=== PATIENT | female | born 1975 | race Caucasian/White ===

== ENCOUNTER 2019-08-22 18:30 | Emergency (ER) | payer MEDICAID, SELFPAY ==
[2019-08-22 18:52] LABS: Basophils % 0.1 %; Eosinophils # 0.2 10^3/uL (0.0-0.8); Eosinophils % 1.7 %; Hematocrit 42.4 % (37.0-47.0); Hemoglobin 13.3 g/dL (11.5-15.3); Lymphocytes % 8.8 %; Mean Corpuscular HGB Conc 31.4 g/dL (30.0-36.0); Mean Corpuscular Hemoglobin 25.5 pg (28.0-34.0); Mean Corpuscular Volume 81.4 fL (81-99); Mean Platelet Volume 10.2 fL (7.4-10.4); Monocytes # 0.4 10^3/uL (0.2-0.9); Monocytes % 3.3 %; Neutrophils # 9.9 10^3/uL (1.8-7.7); Neutrophils % 85.8 %; Nucleated Red Blood Cells % 0 %; Platelet Count 294 10^3/cmm (130-400); Red Blood Count 5.21 10^6/uL (4.1-5.3); Red Cell Distribution Width 13.1 % (12.1-15.1); White Blood Count 11.5 10^3/uL (4.0-10.0)
[2019-08-22 18:54] VITALS: BP 145/100; PULSE 108; RESP 18; TEMP 36.6; O2SAT 98; BMI 44.6
[2019-08-22 19:09] LABS: Alanine Aminotransferase 16 U/L (0-33); Albumin Level 4.4 g/dL (3.5-5.2); Alkaline Phosphatase 108 IU/L (35-105); Aspartate Amino Transferase 13 U/L (0-32); Blood Urea Nitrogen 11 mg/dL (6-20); Calcium 9.3 mg/dL (8.5-10.5); Carbon Dioxide 25 mmol/L (22-29); Chloride 103 mmol/L (98-107); Glucose 156 mg/dL (74-109); Lipase 28 U/L (13-60); Sodium 140 mmol/L (136-145); Total Bilirubin 0.4 mg/dL (0.15-1.2); Total Protein 7.4 g/dL (6.6-8.7)
[2019-08-22 19:47] LABS: HCG Qualitative Urine. Negative (Negative)
[2019-08-22 20:04] LABS: Add Urine Culture? No; Add Urine Microscopic? YES; Bacteria Urine TRACE; Bilirubin Urine Neg (NEGATIVE); Blood Urine 2+ (Negative); Glucose Urine UA Norm (Normal); Ketones Urine Negative (Negative); Leukocyte Esterase Urine Negative (Negative); Mucus Urine 1+; Nitrate Urine Negative (Negative); Protein Urine Neg (Negative); Specific Gravity, Urine 1.025 (1.005-1.030); Urine Appearance Clear (CLEAR); Urine Color Yellow (Yellow); Urobilinogen Urine 1 mg/dL (Negative); pH Urine 5 (5-7)
--- NOTE | 2019-08-22 20:54 | CTR_ITS ---
PROCEDURE INFORMATION: Exam: CT Abdomen And Pelvis With Contrast Exam date and time: 08/22/2019 9:47 PM Age: 43 years old Clinical indication: Abdominal pain; Generalized; Prior surgery; Surgery type: Tubal, gb; Additional info: Pain/hematuria TECHNIQUE: Imaging protocol: Computed tomography of the abdomen and pelvis with intravenous contrast. Total DLP: 2052.96 mGy-cm Radiation optimization: All CT scans at this facility use at least one of these dose optimization techniques: automated exposure control; mA and/or kV adjustment per patient size (includes targeted exams where dose is matched to clinical indication); or iterative reconstruction. Contrast material: OMNI 300; Contrast volume: 95 ml; Contrast route: IV; COMPARISON: CT abdomen pelvis w con* [id number] 04/27/2017 4:08 PM FINDINGS: Mediastinum: A small hiatal hernia is present. Liver: There is a diffuse decrease in hepatic parenchymal density, consistent with fatty infiltration. Gallbladder and bile ducts: There has been a cholecystectomy. Pancreas: Normal. No ductal dilation. Spleen: Normal. No splenomegaly. Adrenals: Normal. No mass. Kidneys and ureters: There is no evidence of hydronephrosis. There is no evidence of renal calcifications. Stomach and bowel: Unremarkable. No obstruction. No mucosal thickening. Appendix: A normal appendix is identified. Intraperitoneal space: Unremarkable. No free air. No significant fluid collection. Vasculature: Unremarkable.No abdominal aortic aneurysm. Lymph nodes: Unremarkable.No enlarged lymph nodes. Bladder: Unremarkable as visualized. Reproductive: Unremarkable as visualized. Unremarkable uterus and ovaries. Bones/joints: Unremarkable. No acute fracture. Soft tissues: Unremarkable. CT/CT abdomen pelvis w con* [id number] IMPRESSION: No acute abnormality or inflammatory changes. No obstructing calculi or hydronephrosis. No ileus or obstruction. Radiation Dose CTDIVOL = (mGy): DLP = 2052.96 (mGy-cm)
--- NOTE | 2019-08-22 20:56 | ED_ITS ---
HPI - General Adult General: Chief complaint: Abdominal Pain Stated complaint: ABD/BACK PAIN/DIZZY Time Seen by Provider: 08/22/19 20:49 History of Present Illness: HPI narrative: Patient here complaining about lower pelvic pain and pain radiating out to both sides of her low back. Denies nausea and vomiting. Does feel dizzy. No history of hypertension. Symptoms been going on for the last couple days. Says she feels like she has a UTI. Denies vaginal discharge history of ovarian cyst finished menses on August 16 complaint: abd pain Onset (ago): day(s) (2) Location: abdomen Radiation: back Severity: moderate Severity scale (1-10): 7 Quality: burning and aching Pain Consistency: constant Relieving factors: none Exacerbating factors: none Associated symptoms: Reports no associated symptoms; Deny chest pain, dyspnea, headache(s), nausea, rash or vomiting Review of Systems Const: Denies: fever, chills or body aches Eyes: Denies: change in vision or blurry vision ENMT: Denies: throat pain or nasal congestion Card: Denies: chest pain or shortness of breath on exertion Resp: Denies: shortness of breath, productive cough or non-productive cough GI: Reports: abdominal pain; Denies: nausea or vomiting Musc: Denies: extremity pain Skin/Breast: Denies: rash Neuro: Denies: headache Psych: Denies: anxiety or depression Michael/Lymph: Denies: easy bruising PFSH ED PFSH: Statuses (acute, chronic, etc) shown below reflect problem list status as previously entered and may not be historically accurate Social History Smoking and tobacco status: current every day smoker Physical Exam Const: COMMON NORMALS: no apparent distress, average body habitus and oriented x3 HENMT: COMMON NORMALS: normocephalic HEAD & SCALP: normal to inspection and normocephalic FACE & SINUS: normal facial exam Eye: COMMON NORMALS: conjunctivae normal GENERAL EYE: normal appearance of both eyes CONJUNCTIVA: Yes conjunctivae normal Neck/C-Spine: COMMON NORMALS: no JVD Chest: COMMONS NORMALS: inspection of chest normal Resp: COMMON NORMALS: normal respiratory effort and clear to auscultation bilaterally AUSCULTATION: clear to auscultation bilaterally Cardio: COMMON NORMALS: no JVD, regular rate and regular rhythm RATE: regular rate RHYTHM: regular rhythm GI: COMMON NORMALS: normal to inspection, nondistended, normoactive bowel sounds and soft to palpation PALPATION: Yes soft and Yes tender Details: LLQ and RLQ PERCUSSION: normal to percussion Extremity: COMMON NORMALS: normal to inspection and full ROM Neuro: COMMON NORMALS: oriented x3 Course Vital Signs: Vital signs: Vital Signs Temperature 97.8 F 08/22/19 18:54 Pulse Rate 108 H 08/22/19 18:54 Respiratory Rate 18 08/22/19 18:54 Blood Pressure 145/100 08/22/19 18:54 Pulse Oximetry 98 08/22/19 18:54 [facility] - General Adult Lab Data: Labs: Lab Results 08/22/19 08/22/19 08/22/19 Range/Units 18:47 18:47 19:32 WBC 11.5 H (4.0-10.0) 10^3/ uL RBC 5.21 (4.1-5.3) 10^6/u L Hgb 13.3 (11.5-15.3) g/dL Hct 42.4 (37.0-47.0) % MCV 81.4 (81-99) fL MCH 25.5 L (28.0-34.0) pg MCHC 31.4 (30.0-36.0) g/dL RDW 13.1 (12.1-15.1) % Plt Count 294 (130-400) 10^3/c mm MPV 10.2 (7.4-10.4) fL Neut % (Auto) 85.8 % Lymph % (Auto) 8.8 % Letcher % (Auto) 3.3 % Eos % (Auto) 1.7 % Baso % (Auto) 0.1 % Neut # (Auto) 9.9 H (1.8-7.7) 10^3/u L Lymph # (Auto) 1.0 (0.8-4.8) 10^3/u L Letcher # (Auto) 0.4 (0.2-0.9) 10^3/u L Eos # (Auto) 0.2 (0.0-0.8) 10^3/u L Baso # (Auto) 0.0 (0.0-0.1) 10^3/u L Nucleated RBC % (a uto) 0 % Nucleated RBCs # 0.0 /100WBC Sodium 140 (136-145) mmol/L Potassium 4.0 (3.5-5.1) mmol/L Chloride 103 (98-107) mmol/L Carbon Dioxide 25 (22-29) mmol/L Anion Gap 16.0 (5-19) BUN 11 (6-20) mg/dL Creatinine 0.8 (0.5-0.9) mg/dL GFR Calculation 79.0 L (90-130) mL/min Glucose 156 H (74-109) mg/dL Calcium 9.3 (8.5-10.5) mg/dL Total Bilirubin 0.4 (0.15-1.2) mg/dL AST 13 (0-32) U/L ALT 16 (0-33) U/L Alkaline Phosphata se 108 H (35-105) IU/L Total Protein 7.4 (6.6-8.7) g/dL Albumin 4.4 (3.5-5.2) g/dL Globulin 3.0 (1.3-4.6) g/dL Lipase 28 (13-60) U/L HCG, Qual Negative (Negative) Urine Color (Yellow) Urine Appearance (CLEAR) Urine pH (5-7) Ur Specific Gravit y (1.005-1.030) Urine Protein (Negative) Urine Glucose (UA) (Normal) Urine Ketones (Negative) Urine Occult Blood (Negative) Urine Nitrate (Negative) Urine Bilirubin (NEGATIVE) Urine Urobilinogen (Negative) mg/dL Ur Leukocyte Gemma ase (Negative) Urine RBC (0-2) /hpf Urine WBC (0-5) /hpf Ur Squamous Epith Cells (0-5) Urine Bacteria (NONE) Urine Mucus 08/22/19 Range/Units 19:32 WBC (4.0-10.0) 10^3/ uL RBC (4.1-5.3) 10^6/u L Hgb (11.5-15.3) g/dL Hct (37.0-47.0) % MCV (81-99) fL MCH (28.0-34.0) pg MCHC (30.0-36.0) g/dL RDW (12.1-15.1) % Plt Count (130-400) 10^3/c mm MPV (7.4-10.4) fL Neut % (Auto) % Lymph % (Auto) % Letcher % (Auto) % Eos % (Auto) % Baso % (Auto) % Neut # (Auto) (1.8-7.7) 10^3/u L Lymph # (Auto) (0.8-4.8) 10^3/u L Letcher # (Auto) (0.2-0.9) 10^3/u L Eos # (Auto) (0.0-0.8) 10^3/u L Baso # (Auto) (0.0-0.1) 10^3/u L Nucleated RBC % (a uto) % Nucleated RBCs # /100WBC Sodium (136-145) mmol/L Potassium (3.5-5.1) mmol/L Chloride (98-107) mmol/L Carbon Dioxide (22-29) mmol/L Anion Gap (5-19) BUN (6-20) mg/dL Creatinine (0.5-0.9) mg/dL GFR Calculation (90-130) mL/min Glucose (74-109) mg/dL Calcium (8.5-10.5) mg/dL Total Bilirubin (0.15-1.2) mg/dL AST (0-32) U/L ALT (0-33) U/L Alkaline Phosphata se (35-105) IU/L Total Protein (6.6-8.7) g/dL Albumin (3.5-5.2) g/dL Globulin (1.3-4.6) g/dL Lipase (13-60) U/L HCG, Qual (Negative) Urine Color Yellow (Yellow) Urine Appearance Clear (CLEAR) Urine pH 5 (5-7) Ur Specific Gravit y 1.025 (1.005-1.030) Urine Protein Neg (Negative) Urine Glucose (UA) Norm (Normal) Urine Ketones Negative (Negative) Urine Occult Blood 2+ H (Negative) Urine Nitrate Negative (Negative) Urine Bilirubin Neg (NEGATIVE) Urine Urobilinogen 1 H (Negative) mg/dL Ur Leukocyte Gemma ase Negative (Negative) Urine RBC 5-10 H (0-2) /hpf Urine WBC None (0-5) /hpf Ur Squamous Epith Cells 5-10 H (0-5) Urine Bacteria Trace (NONE) Urine Mucus 1+ Coding Level of Care Code ED Chef Broiler Or Fry for Magali Gonzáles
[2019-08-22 21:22] VITALS: RESP 16
[2019-08-22] MEDS: morphine 4 mg/mL SDV 1 mL IVP (21:22)
[2019-08-22] MEDS: sodium chloride 0.9% 1,000 ML 999 ML IV (21:23)
[2019-08-22] MEDS: ondansetron 2 mg/ML SDV 2 mL 4 MG IVP (21:23)
[2019-08-22] MEDS: iohexol 300 mg/mL 100 mL Btl 95 ML IV (21:54)
[2019-08-22 22:27] VITALS: RESP 18
[2019-08-22] MEDS: morphine 4 mg/mL SDV 1 mL 2 MG IVP (22:27)
[2019-08-22 23:05] VITALS: BP 143/83; PULSE 90; RESP 18; O2SAT 96
== END 2019-08-22 23:06 | disposition home or self-care (01) ==
PROVIDERS: Emergency Medicine; Emergency Provider Nurse Practitioner Family; Family Provider Family Medicine
DX: R10.9 Unspecified abdominal pain (principal); M54.9 Dorsalgia, unspecified; F17.210 Nicotine dependence, cigarettes, uncomplicated
CPT/HCPCS: 36415; 74177; 80053; 81001; 81025; 83690; 85025; 96374; 99282; 99283; J2270; J2405; J7030; Q9967

== ENCOUNTER 2019-12-08 16:09 | Emergency (ER) | payer SELFPAY ==
[2019-12-08 16:22] VITALS: BP 155/95; PULSE 96; RESP 18; TEMP 36.7; O2SAT 96; BMI 44.6
--- NOTE | 2019-12-08 17:23 | ED_ITS ---
HPI - Fall General: Chief Complaint: Fall Stated Complaint: fell Time Seen by Provider: 12/08/19 17:23 History of Present Illness: HPI Narrative: Patient is a 44-year-old female who comes to the ED with left lower back and hip pain. Patient says yesterday she was at [employer] [facility] and she slipped in some water fell down to her left knee. She was in any pain at all after the fall but then during the night she started getting left hip pain and left lower back pain. She rates the pain an 8 out of 10. Denies hitting her head or any loss of consciousness. Denies any bladder or bowel symptoms. Associated symptoms-after fall: Denies abdominal pain, chest pain, headache(s), hematuria or neck pain Review of Systems Const: Denies: fever(s), chills or fatigue Eyes: Denies: change in vision or eye discomfort ENMT: Denies: throat pain, odynophagia, nasal discharge or nasal congestion Card: Denies: chest pain, palpitations, edema, swelling of feet/ankles, dyspnea on exertion or orthopnea Resp: Denies: dyspnea, productive cough or non-productive cough GI: Denies: abdominal pain, nausea, vomiting, diarrhea, constipation or hematochezia : Denies: flank pain, dysuria or hematuria Musc: Reports: back pain (left lower back) and joint pain (left hip pain); Denies: neck pain or extremity swelling Skin/Breast: Denies: rash or new lesions Neuro: Denies: headache(s), numbness in extremities or weakness in extremities [facility] ED PFSH: Social History Smoking and tobacco status: current every day smoker Physical Exam Const: COMMON NORMALS: no acute distress, patient oriented x3 and alert GENERAL APPEARANCE: cooperative and comfortable HENMT: COMMON NORMALS: normocephalic HEAD & SCALP: normocephalic MOUTH: Normal oral and palatal mucosa present THROAT: posterior oropharynx normal and uvula midline Neck/C-Spine: COMMON NORMALS: supple GENERAL: Yes normal visual inspection Resp: COMMON NORMALS: normal respiratory effort, No retractions, No use of accessory muscles and clear to auscultation bilaterally AUSCULTATION: clear to auscultation bilaterally Cardio: COMMON NORMALS: regular rate, regular rhythm, S1 normal heart sound present, S2 normal heart sound present, No gallops present (Cardio), No clicks present (Cardio), No murmurs present (Cardio) and Peripheral pulses 2+ throu ghout RATE: regular rate RHYTHM: regular rhythm HEART SOUNDS: S1 normal heart sound present and S2 normal heart sound present PERIPHERAL PULSES: Peripheral pulses 2+ throughout GI: COMMON NORMALS: Normal to inspection, nondistended, normoactive bowel sounds present, Soft to palpation, non-tender and no masses PALPATION: Yes Soft to palpation : COMMON NORMALS: Yes no CVA tenderness BLADDER/KIDNEY EXAM: Yes no CVA tenderness Back/Pelvis: COMMON NORMALS: no CVA tenderness LUMBAR SPINE/LOWER BACK: Yes paraspinal muscle tenderness Lumbar paraspinal muscle tenderness: left left lumbar paraspinal muscle tenderness: L4 and L5 Extremity: LEFT LOWER EXTREMITY: Yes hip joint Left hip: Yes inspection (No swelling or deformity seen.), Yes palpation (mild tenderness over lateral side), Yes ROM (full with some pain) and Yes neurovascular exam (intact) Neuro: COMMON NORMALS: patient oriented x3, CN's II-XII intact bilaterally, moves all extremities, no focal motor deficits and no sensory deficits noted SENSORIUM/ORIENTATION: Yes alert SENSORY EXAM: Yes extremities (intact) MOTOR EXAM: 5/5 motor strength present throughout Skin: COMMON NORMALS: no rashes or lesions noted GENERAL SKIN EXAM: no rashes or lesions noted and dry skin Course Vital Signs: Vital signs: Vital Signs Temperature 98.0 F 12/08/19 16:22 Pulse Rate 77 12/08/19 19:42 Respiratory Rate 14 12/08/19 19:42 Blood Pressure 121/88 12/08/19 19:42 Pulse Oximetry 98 12/08/19 19:42 MDM - Fall MDM Narrative: Medical decision making narrative: Patient is a 44-year-old female comes to the ED with left lower back pain and left hip pain due to a fall yesterday. Physical exam was remarkable for some left lower lumbar muscle tenderness and left lateral hip tenderness. Left hip x-ray was performed and showed no acute fractures. Patient was given a dose of IM Toradol and Norflex to help with pain. Patient was discharged with left lumbar pain. She was given a prescription for Robaxin and instructed to take it at night to help with pain and comfort during sleep. Also told her to take [id number] ibuprofen 600 mg 3 times a day. Told her to ice and to stretch lower back. Follow-up with PCP in 7 days for reevaluation. Patient understood and agreed with plan. Imaging Data^: Xray Ortho: Attestation: I personally reviewed and interpreted this imaging study as follows: My impression: Left hip x-ray performed. No acute findings. Pending final radiology report. Discharge Plan Discharge Patient Disposition: Home, Self-Care Clinical Impression: Left lumbar pain Qualifiers: Chronicity: acute Sciatica presence: without sciatica Qualified Code(s): M54.5 - Low back pain Condition: Stable Prescriptions: New Robaxin-750 750 mg tablet 750 mg PO Q8H Qty: 20 RF: 0 No Action hydrocodone-acetaminophen 5-325 mg tablet 1 tab PO Q6H PRN (Reason: pain) Qty: 7 RF: 0 Discharge Orders: Discharge Order (Routine); Ordered 12/08/19 Ordered By: Tano Hayward Referrals: Jose Yanez MD [Family Provider] - Discharge Diet: Regular Discharge Activity: Increase activity as tolerated Patient Instructions: Acute Low Back Pain (ED) Activity Restrictions/Additional Instructions: Follow-up with your PCP in 7 to 10 days for reevaluation. Take prescribed muscle relaxer at night before bed to help with pain and comfort. You can use muscle relaxer during the day but use with caution because it can cause drowsiness. Take [id number] ibuprofen up to 600 mg 3 times a day to help with pain and inflammation. Ice and stretch painful area and lower back. Stand Alone Forms: Work/School Release Discharge Date/Time: 12/08/19 19:45 Coding Level of Care Code ED Lead Neurodiagnostic Technologist for Magali Fwd Exam Comprehensive
--- NOTE | 2019-12-08 17:29 | PC.NURSE ---
Pain to Left knee going into left hip and into the lower back area. Pain on a scale of 1-10 is an 8
--- NOTE | 2019-12-08 17:51 | XRR_ITS ---
PROCEDURE INFORMATION: Exam: XR Left Hip with Pelvis when Performed Exam date and time: 12/08/2019 6:15 PM Age: 44 years old Clinical indication: Pain and injury or trauma; Fall; Initial encounter; Blunt trauma (contusions or hematomas); Hip pain; Left hip; Additional info: Fall with pain to left hip TECHNIQUE: Imaging protocol: XR Left hip with pelvis when performed. Views: 2 or 3 views. COMPARISON: CR Hip 2-3v LEFT wwo Pelv* [id number] 11/21/2016 6:03 PM FINDINGS: Bones/joints: No acute bony injury or malalignment in the left hip. Soft tissues: Skin folds. XR/XR hip LT 2-3V wo/w pel* [id number] IMPRESSION: No acute bony injury or malalignment in the left hip.
[2019-12-08] MEDS: ketorolac 30 mg/mL INJ IM (18:26)
[2019-12-08] MEDS: orphenadrine 30 mg/mL Inj 2 mL 60 MG IM (18:31)
[2019-12-08 19:35] VITALS: BP 120/86; PULSE 70; RESP 16; O2SAT 98
[2019-12-08 19:42] VITALS: BP 121/88; PULSE 77; RESP 14; O2SAT 98
== END 2019-12-08 19:45 | disposition home or self-care (01) ==
PROVIDERS: Emergency Provider Physician Assistant; Family Provider Family Medicine
DX: M54.5 Low back pain (principal); F17.210 Nicotine dependence, cigarettes, uncomplicated
CPT/HCPCS: 12345; 73502; 96372; 99281; 99283; J1885; J2360

== ENCOUNTER 2020-03-13 16:21 | Emergency (ER) | payer SELFPAY ==
[2020-03-13 16:26] VITALS: BMI 46.3
[2020-03-13 16:28] VITALS: BP 130/80; PULSE 92; RESP 16; TEMP 36.8; O2SAT 96
--- NOTE | 2020-03-13 17:26 | US_ITS ---
WS: [id number] EXAM: TRANSVAGINAL PELVIC SONOGRAM DATE OF EXAMINATION: 03/13/2020, 1804 hour COMPARISON: None. HISTORY: 44-year-old with a history of prior tubal ligation. Complaining of left lower quadrant pain with blee ding off and on since February 28. FINDINGS: Uterus is estimated at 6.2 x 4.7 x 6.0 cm in size. Endometrial complex 1.01 cm in thickness. Left ovary is estimated at 3.1 x 2.6 x 2.4 cm in size. Color flow and spectral Doppler demonstrates v enous and arterial flow within the left ovary. Arterial velocity 13.7 cm/s. Most prominent follicular cyst on the left 2.5 cm in size. No free fluid in the cul-de-sac. Right ovary is not identified. US/US transvaginal [id number] IMPRESSION: Thickened endometrial stripe at 1 cm. Most likely represent some degree of endometrial hyperplasia. Normal appearance to the left ovary with a normal-appearing follicular cyst est imated at 2.5 cm in size. Normal flow within the left ovary demonstrated. Right ovary not seen. No free fluid.
--- NOTE | 2020-03-13 17:26 | W.ED.FEMALGU ---
HPI - Female Genitourinary General: Chief complaint: Urogenital-Female Stated complaint: pelvic pain/vaginal bleeding Time Seen by Provider: 03/13/20 17:22 Source: patient Mode of arrival: ambulatory Limitations: no limitations History of Present Illness: HPI Narrative: 44-year-old female comes in today with complaints of bleeding every other day since her last period on 28 February. Patient had her tubes tied about 20 years ago. Patient appears well. Patient appears in mild discomfort. MD elicited complaint: vaginal bleeding Date of Last Menstrual Period: 02/28/20 Review of Systems General: Reports: 10 or more systems reviewed and unremarkable except in HPI and below : Reports: vaginal bleeding PFSH ED PFSH: Social History Smoking and tobacco status: current every day smoker Female Reproductive History: Date of last menstrual period: 02/28/20 Physical Exam Const: COMMON NORMALS: no acute distress and patient oriented x3 GENERAL APPEARANCE: cooperative HENMT: COMMON NORMALS: normocephalic and Normal external nose present HEAD & SCALP: normal to inspection and normocephalic NOSE: Normal external nose present MOUTH: Normal oral and palatal mucosa present THROAT: posterior oropharynx normal Eye: GENERAL EYE: appearance normal, both eyes and all related structures Neck/C-Spine: COMMON NORMALS: full ROM Chest: COMMONS NORMALS: normal inspection of the chest Resp: COMMON NORMALS: normal respiratory effort EFFORT & INSPECTION: Yes able to speak in complete sentences Cardio: COMMON NORMALS: regular rate and regular rhythm RATE: regular rate RHYTHM: regular rhythm GI: COMMON NORMALS: non-tender : COMMON NORMALS: Yes no CVA tenderness BLADDER/KIDNEY EXAM: Yes no CVA tenderness Back/Pelvis: COMMON NORMALS: no CVA tenderness and thoracic and lumbar spine normal to inspection Extremity: COMMON NORMALS: normal to inspection Neuro: COMMON NORMALS: patient oriented x3 and moves all extremities Psych: COMMON NORMALS: mental status grossly normal and cooperative Skin: COMMON NORMALS: no rashes or lesions noted GENERAL SKIN EXAM: no rashes or lesions noted Course Vital Signs: Vital signs: Vital Signs Temperature 98.3 F 03/13/20 16:28 Pulse Rate 84 03/13/20 18:57 Respiratory Rate 18 03/13/20 18:57 Blood Pressure 136/74 08/19/20 18:57 Pulse Oximetry 98 03/13/20 18:57 MDM - Female MDM Narrative: Medical decision making narrative: Patient comes in today with complaints of abnormal vaginal bleeding. Patient reports irregular bleeding since her last period on 28 February. Patient reports he will go without bleeding for 2 days and then have a reoccurrence. Patient appears well. Patient does complain of some increased cramping with the bleeding. Differential diagnosis includes but not limited to menorrhagia, endometrial hyperplasia, 3 menstrual syndrome. Laboratory values were nonspecific. hCG was negative. Ultrasound of the pelvis noted a cyst on the left ovary and some mild endometrial hyperplasia. Patient was given Toradol for pain. With recommendations for following up with THEATER EDUCATION TEACHER. Patient was placed on naproxen twice a day routinely for prostaglandin intubation and pain control. She was recommended to return to the ER for worsening symptoms or high fever. Patient reported understanding. Lab Data: Labs: Lab Results 03/13/20 03/13/20 03/13/20 Range/Units 17:50 17:50 17:50 WBC 8.7 (4.0-10.0) 10^3/ uL RBC 4.58 (4.1-5.3) 10^6/u L Hgb 12.1 (11.5-15.3) g/dL Hct 38.1 (37.0-47.0) % MCV 83.2 (81-99) fL MCH 26.4 L (28.0-34.0) pg MCHC 31.8 (30.0-36.0) g/dL RDW 13.7 (12.1-15.1) % Plt Count 283 (130-400) 10^3/c mm MPV 10.4 (7.4-10.4) fL Neut % (Auto) 65.2 % Lymph % (Auto) 26.2 % Madison % (Auto) 5.5 % Eos % (Auto) 2.5 % Baso % (Auto) 0.3 % Neut # (Auto) 5.67 (1.8-7.7) 10^3/u L Lymph # (Auto) 2.3 (0.8-4.8) 10^3/u L Madison # (Auto) 0.5 (0.2-0.9) 10^3/u L Eos # (Auto) 0.2 (0.0-0.8) 10^3/u L Baso # (Auto) 0.0 (0.0-0.1) 10^3/u L Nucleated RBC % (a uto) 0 % Nucleated RBCs # 0.0 /100WBC Sodium 140 (136-145) mmol/L Potassium 4.1 (3.5-5.1) mmol/L Chloride 105 (98-107) mmol/L Carbon Dioxide 26 (22-29) mmol/L Anion Gap 13.1 (5-19) BUN 11 (6-20) mg/dL Creatinine 0.7 (0.5-0.9) mg/dL GFR Calculation 91.8 (90-130) mL/min Glucose 119 H (65-115) mg/dL Calculated Osmolal ity 287 (285-295) mOsm/k g Calcium 9.2 (8.5-10.5) mg/dL Total Bilirubin 0.2 (0.15-1.2) mg/dL AST 14 (0-32) U/L ALT 16 (0-33) U/L Alkaline Phosphata se 87 (35-105) IU/L Total Protein 6.7 (6.6-8.7) g/dL Albumin 3.9 (3.5-5.2) g/dL Globulin 2.8 (1.3-4.6) g/dL HCG, Qual Negative (Negative) Discharge Plan Discharge Patient Disposition: Home Clinical Impression: Endometrial hyperplasia Menorrhagia Qualifiers: Menorrhagia type: premenopausal Qualified Code(s): N92.4 - Excessive bleeding in the premenopausal period Condition: Stable Prescriptions: New naproxen 500 mg tablet 500 mg PO BID Qty: 20 RF: 0 No Action hydrocodone-acetaminophen 5-325 mg tablet 1 tab PO Q6H PRN (Reason: pain) Qty: 7 RF: 0 Robaxin-750 750 mg tablet 750 mg PO Q8H Qty: 20 RF: 0 Discharge Orders: Discharge Order (Routine); Ordered 03/13/20 Ordered By: Maurice Burk Discharge Diet: Usual diet Discharge Activity: Increase activity as tolerated Patient Instructions: Menorrhagia (ED) Activity Restrictions/Additional Instructions: Drink plenty of fluids with medication. Take naproxen twice a day to help control bleeding and cramping. Follow-up with THEATER EDUCATION TEACHER for further treatment and evaluation. Return to the emergency department for worsening bleeding, or high fever. Case management will contact you in the next couple of days to help with follow-up appointment with THEATER EDUCATION TEACHER. If you do not hear from case management within 2 days please contact the emergency room charge nurse. Discharge Date/Time: 03/13/20 18:58 Coding Level of Care Code ED Area Captain for Magali Fwd Exam Comprehensive
[2020-03-13 17:56] LABS: Basophils % 0.3 %; Eosinophils # 0.2 10^3/uL (0.0-0.8); Eosinophils % 2.5 %; Hematocrit 38.1 % (37.0-47.0); Hemoglobin 12.1 g/dL (11.5-15.3); Lymphocytes # 2.3 10^3/uL (0.8-4.8); Lymphocytes % 26.2 %; Mean Corpuscular HGB Conc 31.8 g/dL (30.0-36.0); Mean Corpuscular Hemoglobin 26.4 pg (28.0-34.0); Mean Corpuscular Volume 83.2 fL (81-99); Mean Platelet Volume 10.4 fL (7.4-10.4); Monocytes # 0.5 10^3/uL (0.2-0.9); Monocytes % 5.5 %; Neutrophils # 5.67 10^3/uL (1.8-7.7); Neutrophils % 65.2 %; Nucleated Red Blood Cells % 0 %; Platelet Count 283 10^3/cmm (130-400); Red Blood Count 4.58 10^6/uL (4.1-5.3); Red Cell Distribution Width 13.7 % (12.1-15.1); White Blood Count 8.7 10^3/uL (4.0-10.0)
[2020-03-13 18:12] LABS: HCG, Serum Qual Negative (Negative)
[2020-03-13 18:14] LABS: Alanine Aminotransferase 16 U/L (0-33); Albumin Level 3.9 g/dL (3.5-5.2); Alkaline Phosphatase 87 IU/L (35-105); Anion Gap 13.1 (5-19); Aspartate Amino Transferase 14 U/L (0-32); Blood Urea Nitrogen 11 mg/dL (6-20); Calcium 9.2 mg/dL (8.5-10.5); Carbon Dioxide 26 mmol/L (22-29); Chloride 105 mmol/L (98-107); Globulin 2.8 g/dL (1.3-4.6); Glomerular Filtration Rate 91.8 mL/min (90-130); Glucose 119 mg/dL (65-115); Osmolality Calculated 287 mOsm/kg (285-295); Potassium 4.1 mmol/L (3.5-5.1); Sodium 140 mmol/L (136-145); Total Bilirubin 0.2 mg/dL (0.15-1.2); Total Protein 6.7 g/dL (6.6-8.7)
[2020-03-13 18:57] VITALS: BP 136/74; PULSE 84; RESP 18; O2SAT 98
[2020-03-13 19:08] LABS: Urine Appearance Cloudy (CLEAR); Urine Color Red (Yellow)
[2020-03-13 19:09] LABS: Add Urine Microscopic? YES; Bilirubin Urine Neg (NEGATIVE); Blood Urine 3+ (Negative); Glucose Urine UA Norm (Normal); Ketones Urine Negative (Negative); Leukocyte Esterase Urine Negative (Negative); Nitrate Urine Negative (Negative); Protein Urine 1+ (Negative); Specific Gravity, Urine 1.025 (1.005-1.030); Urobilinogen Urine Norm (Negative); pH Urine 5 (5-7)
[2020-03-13 19:10] LABS: Add Urine Culture? Yes; Bacteria Urine 3+; RBC Urine TOO NUMEROUS TO CNT /hpf (0-2); Squamous Epithelial Cell Urine 0-4 (0-5); WBC Urine 0-4 /hpf (0-5)
--- NOTE | 2020-03-14 09:28 | DCPLANNER ---
acting manager had message to schedule a follow up appointment for patient with [facility]. acting manager called the [facility], spoke with Patricia, gave clinic patients information. acting manager was told that patients information would be printed and reviewed. Clinic will call patient with appointment information.
--- NOTE | 2020-03-15 13:15 | DCPLANNER ---
Patient has a follow up appointment scheduled for Wednesday, March 29, 2020 at 10:[address] Ibrahim. Clinic will call patient with appointment information.
--- NOTE | 2020-04-04 07:51 | DCPLANNER ---
Patient had a follow up appointment scheduled with [facility] - patient did attend appointment.
== END 2020-03-13 18:58 | disposition home or self-care (01) ==
PROVIDERS: Emergency Provider Nurse Practitioner Family
DX: N93.9 Abnormal uterine and vaginal bleeding, unspecified (principal); N92.4 Excessive bleeding in the premenopausal period; N85.00 Endometrial hyperplasia, unspecified; F17.210 Nicotine dependence, cigarettes, uncomplicated
CPT/HCPCS: 12345; 36415; 76830; 80053; 81001; 84703; 85025; 87086; 99281; 99282; 99283

== ENCOUNTER → 2020-03-25 09:45 | Outpatient (BNVA) | payer SELFPAY | PROVIDERS: Visit Provider Obstetrics & Gynecology | DX: N93.9 Abnormal uterine and vaginal bleeding, unspecified (principal); R10.2 Pelvic and perineal pain | CPT/HCPCS: 83001; 84146; 84443; 85025 ==

== ENCOUNTER → 2020-09-26 13:30 | Outpatient (BNVA) | payer SELFPAY | PROVIDERS: Visit Provider Obstetrics & Gynecology | DX: N93.9 Abnormal uterine and vaginal bleeding, unspecified (principal); Z12.4 Encounter for screening for malignant neoplasm of cervix; Z20.822 Contact with and (suspected) exposure to COVID-19 | CPT/HCPCS: 87635; 88175; 88305 ==

== ENCOUNTER 2020-10-02 08:56 | Observation (INO) | payer SELFPAY ==
[2020-09-30 10:14] VITALS: BMI 49.2
--- NOTE | 2020-09-30 10:47 | ANES.PREANE2 ---
Pre-Anesthetic Assessment Pre-Anesthetic Assessment: Height/Weight: Height 1.63 m Weight 130.181 kg Proposed Procedure: Operation Date: 10/02/20 07:00 Proposed Procedures p Total Vaginal Hysterectomy 95444 n93.9 r10.2(Not Applicable) - Merlin Ibrahim MD Was Beta Viola taken within 24 hours: N/A Social: Social History: Tobacco and No alcohol Exam: Pre-Anes Outpt Exam: alert, oriented x 3 and regular rate & rhythm Airway: Submandibular: WNL Cervical ROM: WNL MP: 2 Dentition: Loose (bottom arch central incisors looseX2) Pulmonary: Pulmonary: COPD CV/HEM: CV/HEM: Anemia Metabolic: Metabolic: Morbid obesity Anesthetic Plan: ASA status: 3 Anesthesia: General Risk of > 500 ml blood loss (7ml/kg in children): No PFSH Anesthesia PFSH: Medical History Abnormal uterine bleeding (AUB) Pelvic pain Surgical History H/O tubal ligation 1998 S/P cholecystectomy 2003 Family History Grandmother Breast cancer maternal Uterine cancer maternal Mother Uterine cancer, Onset Age: 45 Stroke Sister Ovarian cancer, Onset Age: 22 Father Anesthesia complication Diabetes Hypertension Other Clotting disorder Denies family history of Hyperlipidemia Bleeding disorder Social History (Updated 09/30/20 @ 08:34 by Marion Mccurdy RN) Smoking and tobacco status: former smoker Quit status (tobacco): has quit using tobacco Year quit tobacco: 2019 Alcohol intake: current Alcohol intake frequency: holidays/special occasions only Alcohol type: wine Substance/Drug Use: never Female Reproductive History: Date of last menstrual period: 02/28/20 Data Anesthesia Cardiac Studies: No Data to Display
[2020-10-02] VITALS (22 sets, daily range): BP systolic 111–173; BP diastolic 66–96; PULSE 71–97; RESP 16–22; TEMP 36.1–36.8; O2SAT 93–100
[2020-10-02 06:16] LABS: OR HCG Qualitative Urine Negative (Negative)
[2020-10-02] MEDS: scopolamine 1.5 Patch 1 PATCH TRANSDERMA (06:45)
[2020-10-02] MEDS: lactated ringers 500 ML IV (06:45)
[2020-10-02 06:46] LABS: Basophils % 0.2 %; Eosinophils # 0.2 10^3/uL (0.0-0.8); Eosinophils % 2.3 %; Hematocrit 35.5 % (37.0-47.0); Hemoglobin 11.1 g/dL (11.5-15.3); Lymphocytes % 23.8 %; Mean Corpuscular HGB Conc 31.3 g/dL (30.0-36.0); Mean Corpuscular Hemoglobin 25.6 pg (28.0-34.0); Mean Corpuscular Volume 81.8 fL (81-99); Mean Platelet Volume 10.6 fL (7.4-10.4); Monocytes # 0.6 10^3/uL (0.2-0.9); Monocytes % 6.7 %; Neutrophils # 5.71 10^3/uL (1.8-7.7); Neutrophils % 66.8 %; Nucleated Red Blood Cells % 0 %; Platelet Count 278 10^3/cmm (130-400); Red Blood Count 4.34 10^6/uL (4.1-5.3); Red Cell Distribution Width 17.6 % (12.1-15.1); White Blood Count 8.6 10^3/uL (4.0-10.0)
--- NOTE | 2020-10-02 06:47 | P.ANESUD_ITS ---
Pre-Anesthetic Update Pre-Anesthetic Assessment: Date of Surgery/Procedure: 10/02/20 Preop Tiera gnosis: Abnormal uterine bleeding, chronic pelvic pain, endometrial Proposed Procedure: Operation Date: 10/02/20 07:00 Proposed Procedures p Total Vaginal Hysterectomy 33140 n93.9 r10.2(Not Applicable) - Merlin Ibrahim MD Any changes to Pre-Anesthetic Assessment?: No Last Intake: Intake Last Liquid Date 10/01/20 Last Liquid Time 23:50 Last Solid Date 10/01/20 Last Solid Time 20:30 Labs Last 48hrs: Laboratory Results - last 48 hr 10/02/20 10/02/20 06:05 06:25 WBC 8.6 RBC 4.34 Hgb 11.1 L Hct 35.5 L MCV 81.8 MCH 25.6 L MCHC 31.3 RDW 17.6 H Plt Count 278 MPV 10.6 H Neut % (Auto) 66.8 Lymph % (Auto) 23.8 [place] % (Auto) 6.7 Eos % (Auto) 2.3 Baso % (Auto) 0.2 Neut # (Auto) 5.71 Lymph # (Auto) 2.0 [place] # (Auto) 0.6 Eos # (Auto) 0.2 Baso # (Auto) 0.0 Nucleated RBC % (a uto) 0 Nucleated RBCs # 0.0 Urine HCG, Qual Negative Vitals: Temperature 97 F L 10/02/20 06:42 Temperature Source Temporal Artery S can 10/02/20 06:42 Pulse Rate 85 10/02/20 06:42 Respiratory Rate 18 10/02/20 06:42 Blood Pressure 132/80 10/02/20 06:42 Blood Pressure Shakira n 97 10/02/20 06:42 Pulse Oximetry 97 10/02/20 06:42 Oxygen Delivery Me thod 10/02/20 06:42 Exam: Pre-Anes Outpt Exam: alert, oriented x 3, clear to auscultation bilaterally and regular rate & rhythm Cardiac Studies: No Data to Display
--- NOTE | 2020-10-02 06:49 | W.PM.OPSUD ---
Surgery/Procedure H&P Update DATE OF PROCEDURE: October 02, 2020 DATE H&P PERFORMED: 09/30/20 H&P UPDATE INFORMATION: I have reviewed H&P completed within last 30 days, I have examined patient prior to procedure and No changes to prior documentation PREOP DIAGNOSIS: Abnormal uterine bleeding, chronic pelvic pain, endometrial PLANNED PROCEDURE: Operation Date: 10/02/20 07:00 Proposed Procedures p Total Vaginal Hysterectomy 32747 n93.9 r10.2(Not Applicable) - Merlin Ibrahim MD
[2020-10-02 06:55] LABS: Urine Appearance Clear (CLEAR); Urine Color Yellow (Yellow)
[2020-10-02 06:56] LABS: Add Urine Culture? No; Add Urine Microscopic? YES; Bacteria Urine TRACE /hpf; Bilirubin Urine Neg (Negative); Blood Urine 3+ (Negative); Glucose Urine UA Norm (Normal); Ketones Urine Negative (Negative); Leukocyte Esterase Urine Negative (Negative); Mucus Urine TRACE /hpf; Nitrate Urine Negative (Negative); Protein Urine Neg (Negative); Specific Gravity, Urine 1.025 (1.005-1.030); Urobilinogen Urine 4 mg/dL (Negative); WBC Urine 0-4 /hpf (0-5); pH Urine 5 (5-7)
[2020-10-02 06:58] LABS: Alanine Aminotransferase 10 U/L (0-33); Albumin Level 3.5 g/dL (3.5-5.2); Alkaline Phosphatase 75 IU/L (35-105); Anion Gap 14.3 (5-19); Aspartate Amino Transferase 15 U/L (0-32); Blood Urea Nitrogen 8 mg/dL (6-20); Calcium 8.7 mg/dL (8.5-10.5); Carbon Dioxide 22 mmol/L (22-29); Chloride 105 mmol/L (98-107); Globulin 3.1 g/dL (1.3-4.6); Glomerular Filtration Rate 91.8 mL/min (90-130); Glucose 110 mg/dL (65-115); Osmolality Calculated 283 mOsm/kg (285-295); Potassium 4.3 mmol/L (3.5-5.1); Sodium 137 mmol/L (136-145); Total Bilirubin 0.2 mg/dL (0.15-1.2); Total Protein 6.6 g/dL (6.6-8.7)
[2020-10-02] MEDS: ceFOXitin 2,000 MG in sodium chloride 0.9% (plus) 50 ML 100 MG IV (06:58)
--- NOTE | 2020-10-02 08:49 | P.OP_ITS ---
Operative Report Date of procedure: October 02, 2020 Pre-op Diagnosis: Abnormal uterine bleeding, chronic pelvic pain, endometrial Post-op diagnosis: same Procedure Done: Total vaginal hysterectomy Specimens removed/disposition: Uterus Surgeon: Merlin Ibrahim MD Anesthesia: General Estimated blood loss (mL): 100 IV fluids (mL): 1,000 Complications: None Findings: Irregular uterus Condition: stable Disposition: PACU Brief History: 44-year-old female with a history of abnormal uterine bleeding and chronic pelvic pain unresponsive to medical management. Procedure: After informed consent and risks, benefits, indications and alter natives reviewed with the patient was taken to the operating room. The patient was placed in dorsal lithotomy position prepped, and draped in the usual sterile fashion. The pre-procedure timeout verifying the correct patient, procedure, site and side, could not requirements was performed and acknowledge by the OR team. A Tee catheter was placed. A Bookwalter vaginal retractor was placed into the vagina in usual manner visualize the cervix. Cervix was grasped with a single tooth tenaculum and circumferentially infiltrated with 1% Xylocaine with epinephrine. Then cervix was circumferentially incised with bovie and the bladder was dissected off the pubovesical cervical fascia anteriorly with a sponge stick and Metzenbaum scissors. The anterior peritoneal reflection was identified and the anterior cul-de-sac was entered sharply with Metzenbaum scissors. The same procedure was performed posteriorly and a posterior colpotomy was made through the posterior cul-de-sac space without difficulty and the posterior blade of the Bookwalter vaginal retractor was advanced posteriorly into the cul-de-sac. At this time, the left and right uterosacral ligaments were isolated and ligated with 0 Vicryl. The Enseal device was placed over the uterosacral ligaments on either side and was then used in a serial fashion up through the cardinal ligaments bilaterally cross-clamped, cut, and sealed with the Enseal device. Finally, the uterine arteries were cross-clamped, cut, sealed and ligated with the Enseal device. Hemostasis was assured. The broad ligaments were then serially clamped, sealed and cut with the Enseal device on both sides. Excellent hemostasis was visualized. Both cornua were clamped, sealed and cut with the Enseal device. Then the pedicles were then suture ligated with excellent hemostasis. The uterus was excised and submitted for pathologic evaluation. No other abnormalities were noted in the pelvic cavity. The peritoneum was then closed in a pursestring fashion with 0 Vicryl suture. The vaginal cuff angles were closed with [id number] #0 Vicryl suture on both sides and transfixed with the ipsilateral cardinal and uterosacral ligaments. The remainder of the vaginal cuff was closed with #0 Vicryl in a running locked fashion. At this time, instruments were removed from the vagina at hemostasis assured. Tee catheter started to yield blue clear greenish urine. She then awakened from the general anesthesia. The patient tolerated the procedure well and was taken to the PACU recovery room in a stable condition. Sponge, lap, needle and instruments counts were correct x3.
[2020-10-02] MEDS: fentaNYL 50 mcg/mL INJ 2mL IVP ×2 (09:05→09:10)
[2020-10-02] MEDS: HYDROmorphone 1 mg/mL INJ 1 mL 0.5 MG IVP ×2 (09:16→09:28)
[2020-10-02] MEDS: sodium chloride 0.9% 1,000 ML 30 ML IV (09:23)
--- NOTE | 2020-10-02 09:43 | SUR.PHASEI ---
PT RESTING QUIETLY NOW, SNORING RESP, EVEN AND UNLABORED ON 3LNC SATS 97%, ABD IS LARGE SOFT , UNABLE TO VISUALIZE LAILA PAD NO BLEEDING NOTED. BILAT SCDS ON , IV TO LT AC AREA D/I PATENT , ATTEMPTED TO CALL REPORT , WAITING FOR NURSE TO TAKE REPORT.
--- NOTE | 2020-10-02 09:59 | SUR.PHASEI ---
STILL WAITING TO GIVE REPORT TO NURSE, PT SLEEPS IF NOT DISTURBED , S/O LISTED CALLED AND UPDATED THAT PT IS DOING WELL AND WILL GO TO HER ROOM IN APPROX 115 MINUTES.
[2020-10-02] MEDS: docusate sodium 100 mg Capsule PO ×2 (10:28→17:24)
[2020-10-02] MEDS: ketorolac 30 mg/mL INJ IVP ×3 (10:30→22:32)
[2020-10-02] MEDS: dextrose 5%-lactated ringers 1,000 ML 125 ML IV ×2 (10:31→22:32)
[2020-10-02] MEDS: HYDROcodone-acetaminophen 5-325 mg Tablet PO ×2 (10:34→22:39)
[2020-10-02] MEDS: ondansetron 2 mg/ML SDV 2 mL 4 MG IVP (10:37)
[2020-10-02] MEDS: prenatal vitamin Capsule 1 CAP PO (11:06)
--- NOTE | 2020-10-02 14:55 | ANE.PACU2 ---
Inpatient post-anesthesia follow up: Airway intact: Yes Vital signs: Temperature 97.6 F Pulse Rate 81 Respiratory Rate 17 Blood Pressure 133/82 Pulse Oximetry 98 Oxygen Delivery Me thod Room Air Oxygen Flow Rate 3 Fraction of Inspir ed Oxygen Hydration adequate: Yes Nausea and vomiting: No Pain level: 2 Mental status: Baseline
[2020-10-03 00:38] VITALS: BP 128/76; PULSE 89; RESP 17; TEMP 36.8; O2SAT 98
[2020-10-03] MEDS: dextrose 5%-lactated ringers 1,000 ML 125 ML IV (03:43)
[2020-10-03] MEDS: ketorolac 30 mg/mL INJ IVP (03:43)
[2020-10-03 04:26] VITALS: BP 123/85; PULSE 69; RESP 17; TEMP 36.7; O2SAT 98
[2020-10-03 05:31] LABS: Hematocrit 30.8 % (37.0-47.0); Hemoglobin 9.3 g/dL (11.5-15.3); Mean Corpuscular HGB Conc 30.2 g/dL (30.0-36.0); Mean Corpuscular Hemoglobin 25.4 pg (28.0-34.0); Mean Corpuscular Volume 84.2 fL (81-99); Mean Platelet Volume 10.6 fL (7.4-10.4); Platelet Count 215 10^3/cmm (130-400); Red Blood Count 3.66 10^6/uL (4.1-5.3); Red Cell Distribution Width 17.8 % (12.1-15.1); White Blood Count 10.6 10^3/uL (4.0-10.0)
[2020-10-03 07:15] VITALS: BP 126/82; PULSE 79; RESP 16; TEMP 36.7; O2SAT 98
[2020-10-03] MEDS: HYDROcodone-acetaminophen 5-325 mg Tablet PO (07:15)
[2020-10-03] MEDS: ibuprofen 800 mg tablet PO (09:22)
[2020-10-03] MEDS: docusate sodium 100 mg Capsule PO (09:22)
[2020-10-03] MEDS: prenatal vitamin Capsule 1 CAP PO (09:22)
--- NOTE | 2020-10-03 10:40 | P.DS_ITS ---
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 Lofton is a 44 y/o (twins) with a history of abnormal uterine bleeding and chronic pelvic pain unresponsive to medical management. Admitted for planned laparoscopic-assisted vaginal hysterectomy. The procedure was performed without complications. Overnight observation has been uneventful. She is tolerating diet well and ambulating without difficulty. Voiding output has been adequate. She is afebrile and hemodynamically stable. Physical Exam Narrative: EXAM NARRATIVE: GA: Alert and oriented ?3. HEENT: WNL. Heart: Regular rate and rhythm. Lungs: Clear to auscultation bilaterally. Abdomen: Bowel sounds present, nontender, minimal tenderness, incision clean and dry, no redness, pain or edema. 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 Extremities: No edema, no cyanosis, no calves pain. Urinary Catheter Management^: Tee: Cath Placed During This Visit: yes Urinary Catheter Date of Insertion: 10/02/20 Urinary Catheter Time of Insertion: 07:24 Discharge Data Data Completed and Pending: Pending at discharge Category Date Time Status Pathology: Surgic al [PTH] Routine Pth 10/02/20 08:36 Received Labs from last 24 hours 10/03/20 04:45 WBC 10.6 H RBC 3.66 L Hgb 9.3 L Hct 30.8 L MCV 84.2 MCH 25.4 L MCHC 30.2 RDW 17.8 H Plt Count 215 MPV 10.6 H Vitals: Last Vital Signs Temp 98.0 F 10/03/20 07:15 Pulse 79 10/03/20 07:15 Resp 16 10/03/20 07:15 BP 126/82 10/03/20 07:15 Pulse Ox 98 10/03/20 07:15 Discharge Plan Discharge Patient Disposition: Home Condition: Stable Prescriptions: [place] 5-325 mg tablet 1 tab PO Q4H PRN (Reason: pain) Qty: 30 RF: 0 docusate sodium [Colace] 100 mg capsule 100 mg PO BID Qty: 30 RF: 0 ferrous sulfate 325 mg (65 mg iron) tablet 325 mg PO BID Qty: 60 RF: 0 ibuprofen 800 mg tablet 800 mg PO TID PRN (Reason: pain) Qty: 60 RF: 0 Continued Midol 500-25 mg tablet 1 tab PO Q6H PRN (Reason: Adequate Ventilation) RF: 0 multivit no.50-iron comp-folic 1 tab PO DAILY RF: 0 Discontinued norgestimate-ethinyl estradiol [Sprintec (28)] 0.25-35 mg-mcg tablet 1 tab PO DAILY Qty: 84 RF: 3 Discharge Orders: Discharge Order (Routine); Ordered 10/03/20 Ordered By: Merlin Ibrahim Referrals: Merlin Ibrahim MD [Physician] - 2 weeks Discharge Diet: Usual diet Discharge Activity: Increase activity as tolerated Patient Instructions: Laparoscopically Assisted Vaginal Hysterectomy (DC) Activity Restrictions/Additional Instructions: 1. Please call [facility] on next working day to make your post-operative appointment in 2 weeks. 2. Please stay home until you come back to the clinic on first post-operative check up. 3. Please follow instructions on your medications CAREFULLY. 4. If you have abdominal incision, do not cover it unless dressing is necessary because of drainage. OK to shower, but avoid bath. Leave steri-strips until they fall off. If they are still on one week after surgery, you may remove them. 5. If you had vaginal surgery, your doctor may instruct you to take SITZ bath. 6. Yellow, blood tinged odorous vaginal discharge is usually normal after hysterectomy or vaginal surgeries. 7. No sexual intercourse, tampons, or douches until you are completely released from the post-operative care. 8. Avoid constipation by eating right and maybe using some Metamucil or Milk of Magnesia. 9. All prescription refills are given during the working hours. Please do no wait till it runs out. Call the clinic at [phone] before your medication runs out. The clinic will get in touch with your doctor to prescribe medications if necessary. 10. Please remain within 40 mile radius from our hospital because emergencies do happen now and then during the post-operative period. 11. If you have stairs at home, take one step at a time slowly and minimize the number of trips. It helps to stay in one floor for the next few days. No lifting except what you can lift by one hand until you are released from the post-operative care. 12. Driving is discouraged until you are well healed. It may be 3-4 weeks before you feel strong enough to drive. You should be able to turn and look through the rear window without pain and you should be able to push the brake pedal very hard without pain before you drive. No fast rules, but SAFETY should be your primary concern. DO NOT drive if you are on sedating medications such as narcotics. 13. Call the clinic (during working hours) to make urgent appointment or go to the Emergency room, if any of the following occurs: i. Vaginal bleeding becomes heavy, more than a period. ii. Incision becomes red and sore, or drains pus. iii. Your temperature is over 100.4 or you have chill. iv. IV site becomes red and swollen (a little ``knot?? is usually OK) v. Persistent nausea and vomiting vi. Persistent constipation or diarrhea vii. Rash or allergic reaction to medications. Discharge Attestations DITCHING MACHINE OPERATING ENGINEER Time Spent in Discharge Care*: greater than 30 min Coding Level of Care Code Acute Conceptor for Chg Fwd Diagnoses Pelvic pain R10.2 Abnormal uterine bleeding (AUB) N93.9
--- NOTE | 2020-10-03 10:49 | PC.CHAP ---
Pastoral Care Encounter/Spiritual Assessment Type of Contact [] Declined dairy farm worker visit [] Patient/Family/Request visit [] Outpatient visit [] Follow-up visit [] Physician referral [] Code/Alert [x] Routine visit [] Staff referral [] Actively dying [] Patient sleeping [] Family support [] [] Out of room [] Palliative care [] [x] Receiving care in room [] Pre-surgical visit [] Trauma [] Long length of stay [] ICU visit [] Other: Relational/Emotional Strength [x] Patient feels connected with others/family/visitors/staff [] Distress [] Loneliness/isolation [] Abandonment Spirituality of Patient [] Person of Ammy [] Attends Mormon of their Ammy [] Believes in Prayer [] Reads Bible or Jehovah'S Witness materials [] There are Spiritual issues to be addressed Medical Technologist Prn Interventions [] Prayer [] Active listening [] Non-anxious presence [] Spiritual/emotional support [] Crisis/trauma care [] Spiritual counseling [] Bereavement support [] Provided bereavement packet [] Provided Bible/devotional materials [] Provided toy/stuffed animal, coloring book to patient or family member [] Provided Communion [] Anointing/[place] [] Salvation [] Completed spiritual assessment [] Other: Impact on Illness or Injury [] Angry [] Fearful [x] Anxious [] Often cries [] Exhaustion [] Unable to work [] Unable to attend sikh [] Unable to walk/stand [] Unable to read [] Unable to drive [] Unable to eat/drink [] Unable to sleep [] Unable to be with family [] Patient intubated [] Other: Summary had a hysterectomy surgery some pain, feels good going home, has good attitude Time spent with patient 10 mins
[2020-10-03 11:17] VITALS: BP 145/72; PULSE 68; RESP 17; TEMP 36.3; O2SAT 93
[2020-10-03 14:33] VITALS: BP 145/72; PULSE 68; RESP 17; TEMP 36.3; O2SAT 93
== END 2020-10-03 13:30 | disposition home or self-care (01) ==
LOC: MEDSURG 08:56
PROVIDERS: Admitting Provider Obstetrics & Gynecology; Visit Provider Obstetrics & Gynecology
PROC: (CPT 58260; principal; 2020-10-02 07:00)
DX: N93.9 Abnormal uterine and vaginal bleeding, unspecified (principal); R10.2 Pelvic and perineal pain; J44.9 Chronic obstructive pulmonary disease, unspecified; E66.01 Morbid (severe) obesity due to excess calories; Z68.42 Body mass index [BMI] 45.0-49.9, adult; Z87.891 Personal history of nicotine dependence
CPT/HCPCS: 58260; 36415; 80053; 81001; 81025; 84703; 85025; 85027; 86850; 86900; 88307; 96365; G0378; J0694; J1170; J1885; J2250; J2405; J2704; J2710; J3010; J3490; J3535; J7030

== ENCOUNTER 2021-01-02 09:11 | Emergency (ER) | payer SELFPAY ==
[2021-01-02 09:27] VITALS: BP 146/96; PULSE 92; RESP 20; TEMP 36.7; O2SAT 95; BMI 47.9
--- NOTE | 2021-01-02 09:37 | ED_ITS ---
HPI - General Adult General: Chief complaint: General Medical Stated complaint: LLE Pain and swelling Time Seen by Provider: 01/02/21 09:27 History of Present Illness: HPI narrative: Patient is a 45-year-old female comes to the ED with left lower extremity pain and swelling. Patient says she started developing pain in her left thigh approximately 1 week ago. She then started developing some swelling in her left ankle approximately 2 days ago. Denies any injury or trauma to cause left lower extremity pain. Denies any chest pain, shortness of breath or hemoptysis. Denies any history of blood clots or DVTs. Associated symptoms: Deny chest pain, dyspnea, headache(s), nausea, rash, palpitations or vomiting Review of Systems Const: Denies: fever(s), chills or fatigue Eyes: Denies: change in vision or eye discomfort ENMT: Denies: throat pain, odynophagia, nasal discharge or nasal congestion Card: Denies: chest pain, palpitations, edema, swelling of feet/ankles, dyspnea on exertion or orthopnea Resp: Denies: dyspnea, productive cough or non-productive cough GI: Denies: abdominal pain, nausea, vomiting, diarrhea, constipation or hematochezia : Denies: flank pain, dysuria or hematuria Musc: Reports: extremity pain (Left lower extremity) and extremity swelling (Left ankle); Denies: neck pain or back pain Skin/Breast: Denies: rash or new lesions Neuro: Denies: headache(s), numbness in extremities or weakness in extremities PFS ED PFSH: Medical History Abnormal uterine bleeding (AUB) Aftercare following surgery of the genitourinary system Pelvic pain Surgical History H/O tubal ligation 1998 S/P cholecystectomy 2004 Family History Grandmother Breast cancer maternal Uterine cancer maternal Mother Uterine cancer, Onset Age: 45 Stroke Sister Ovarian cancer, Onset Age: 22 Father Anesthesia complication Diabetes Hypertension Other Clotting disorder Denies family history of Hyperlipidemia Bleeding disorder Social History Smoking and tobacco status: former smoker Quit status (tobacco): has quit using tobacco Year quit tobacco: 2019 Alcohol intake: current Alcohol intake frequency: holidays/special occasions only Alcohol type: wine Female Reproductive History: Date of last menstrual period: 02/28/20 Physical Exam Const: COMMON NORMALS: no acute distress, patient oriented x3 and alert GENERAL APPEARANCE: cooperative and comfortable NUTRITIONAL APPEARANCE: obese HENMT: COMMON NORMALS: normocephalic HEAD & SCALP: normocephalic MOUTH: Normal oral and palatal mucosa present THROAT: posterior oropharynx normal and uvula midline Eye: COMMON NORMALS: Equal, round and reactive pupils present and conjunctivae normal CONJUNCTIVA: Yes conjunctivae normal PUPIL: Yes Equal, round and reactive pupils present Neck/C-Spine: COMMON NORMALS: supple GENERAL: Yes normal visual inspection Resp: COMMON NORMALS: normal respiratory effort, No retractions, No use of accessory muscles and clear to auscultation bilaterally AUSCULTATION: clear to auscultation bilaterally Cardio: COMMON NORMALS: regular rate, regular rhythm, S1 normal heart sound present, S2 normal heart sound present, No gallops present (Cardio), No clicks present (Cardio), No murmurs present (Cardio) and Peripheral pulses 2+ throughout RATE: regular rate RHYTHM: regular rhythm HEART SOUNDS: S1 normal heart sound present and S2 normal heart sound present PERIPHERAL PULSES: Peripheral pulses 2+ throughout GI: COMMON NORMALS: Normal to inspection, nondistended, normoactive bowel sounds present, Soft to palpation, non-tender and no masses INSPECTION: Yes central obesity PALPATION: Yes Soft to palpation : COMMON NORMALS: Yes no CVA tenderness BLADDER/KIDNEY EXAM: Yes no CVA tenderness Back/Pelvis: COMMON NORMALS: no CVA tenderness Extremity: GENERAL: Yes normal exam except as noted, Yes edema (Trace edema to left ankle.) and Yes other findings (soft tissue tenderness to lateral left thigh.) Neuro: COMMON NORMALS: patient oriented x3 and moves all extremities SENSORIUM/ORIENTATION: Yes alert Skin: GENERAL SKIN EXAM: dry skin Course Vital Signs: Vital signs: Vital Signs Temperature 98.0 F 01/02/21 09:27 Pulse Rate 92 01/02/21 09:27 Respiratory Rate 20 H 01/02/21 09:27 Blood Pressure 146/96 01/02/21 09:27 Pulse Oximetry 95 01/02/21 09:27 MDM - General Adult MDM Narrative: Medical decision making narrative: Patient is a 45-year-old female comes to the ED with left lower extremity pain and swelling. Denies any trauma or injury to cause symptoms. Denies any chest pain, shortness of breath or hemoptysis. Denies any history of past blood clot or DVTs. Exam shows a nontoxic-appearing patient that has some muscular tenderness to the lateral aspect of left thigh. She has some trace edema in her left ankle as well. Pedal pulses 2+. Ultrasound venous duplex of left lower extremity showed no DVT or blood clots seen. Patient was diagnosed with musculoskeletal pain of left thigh and discharged home. She was told to rest, ice and elevate left leg develop with symptoms. Take [id number] Tylenol or ibuprofen for pain. Follow-up with PCP in 7 to 10 days for reevaluation. Return to ED precautions given. Patient understood agree with plan. Imaging Data^: US Vascular: Attestation: I personally reviewed and interpreted this imaging study as follows: Radiologist's impression: Ultrasound venous duplex of left lower extremity?prelim report?no DVTs or blood clots seen. Discharge Plan Discharge Patient Disposition: Home Clinical Impression: Musculoskeletal pain of left thigh Condition: Stable Prescriptions: No Action No Known Home Medications RF: 0 Discharge Orders: Discharge ED (Routine); Ordered 01/02/21 Ordered By: Tano Hayward Discharge Diet: Regular Discharge Activity: Increase activity as tolerated Patient Instructions: Musculoskeletal Pain (ED) Activity Restrictions/Additional Instructions: Follow-up with medical provider as directed in 7 to 10 days for reevaluation. Rest, ice and elevate left leg to help with symptoms. You can also wear compression stockings during the day to help with swelling. Massage sore area on left thigh to help with symptoms as well. Take [id number] Tylenol or ibuprofen per bottle instruction for pain. Return to the ER or your medical provider if condition worsens. Please read and understand discharge instructions. Thank you for choosing [facility] for your healthcare needs today. Please realize this is an emergency room and that we are providing you with a medical screening exam and this may not be complete and all inclusive of all the testing and or work up that you may need to determine your ailment or severity of your illness. It is very important that you follow up as instructed or that you return to the Emergency Department should you have concerns or if your condition changes or worsens in any way. Coding Level of Care Code ED Group Billing Coordinator for Chg Fwd Exam Comprehensive
--- NOTE | 2021-01-02 09:42 | USCV_ITS ---
Shabana Lofton Age: 45 Gender: F : 1975 Exam Date: 01/02/2021 09:54 Ordering Phys: Tano Hayward Technologist: Lashanda Acuña [place] [facility] [place] LEG PAIN HISTORY: Left lower extremity pain. PROCEDURES: Comparison: none available. Venous duplex imaging was performed in only the left lower extremity. The following venous structures were evaluated: common femoral vein, profunda vein, proximal portion of the greater saphenous vein, superficial femoral vein, and the popliteal vein. In addition, the posterior tibial and peroneal trunk were evaluated. Serial compression, augmentation maneuvers, and spectral Doppler flow evaluation were performed. FINDINGS: Normal 2-D Doppler and augmentation and compressibility throughout the lower extremity venous structures. Additional imaging through the proximal calf veins also reveals no thrombus. Limited evaluation of the greater saphenous vein is patent with no thrombus. CONCLUSIONS No DVT left lower extremity. Dr. Celine Wilson DO (Electronically Signed) Final Date: 02 January 2021 10:31 S
[2021-01-02] MEDS: HYDROcodone-acetaminophen 5-325 mg Tablet 1 TAB PO (10:28)
[2021-01-02 10:34] VITALS: BP 138/90; PULSE 90; RESP 18; O2SAT 96
== END 2021-01-02 10:35 | disposition home or self-care (01) ==
PROVIDERS: Emergency Provider Physician Assistant
DX: M79.652 Pain in left thigh (principal); Z87.891 Personal history of nicotine dependence
CPT/HCPCS: 93971; 99283

== ENCOUNTER 2021-11-01 18:15 | Emergency (ER) | payer SELFPAY ==
--- NOTE | 2021-11-01 18:16 | XRR_ITS ---
PROCEDURE INFORMATION: Exam: XR Right Knee Exam date and time: 11/01/2021 7:13 PM Age: 46 years old Clinical indication: Pain; Knee; Right; Additional info: Injury TECHNIQUE: Imaging protocol: XR Right knee. Views: 3 views. COMPARISON: No relevant prior studies available. FINDINGS: Bones/joints: Normal. Soft tissues: Normal. XR/XR knee RT 3V* [id number] IMPRESSION: No acute findings.
[2021-11-01 18:37] VITALS: BP 172/95; PULSE 83; RESP 20; TEMP 36.9; O2SAT 100; BMI 45.1
--- NOTE | 2021-11-01 18:41 | ED_ITS ---
HPI - Extremity Problem General: Chief complaint: Extremity Injury, Lower Stated complaint: R knee pain Time Seen by Provider: 11/01/21 18:35 History of Present Illness: Patient is a 46-year-old female who comes to the ED with right knee pain. Pain started several hours ago. Patient says she was doing some of her normal daily activities and does not feel like she overdid anything. She went to sit and rest earlier today and then started feeling the pain in her right knee. Denies any fall, injury or trauma to cause pain. She rates her pain currently a 10. Says it gets worse with any range of motion and right knee or any weightbearing onto her right leg. She took some ibuprofen before coming to the ED. Associated symptoms: Deny chest pain, fever(s) or rash Review of Systems Const: Denies: fever(s), chills or fatigue Eyes: Denies: change in vision or eye discomfort ENMT: Denies: throat pain, odynophagia, nasal discharge or nasal congestion Card: Denies: chest pain, palpitations, edema, swelling of feet/ankles, dyspnea on exertion or orthopnea Resp: Denies: dyspnea, productive cough or non-productive cough GI: Denies: abdominal pain, nausea, vomiting, diarrhea, constipation or hematochezia : Denies: flank pain, dysuria or hematuria Musc: Reports: extremity pain (right knee pain); Denies: neck pain, back pain or extremity swelling Skin/Breast: Denies: rash or new lesions Neuro: Denies: headache(s), numbness in extremities or weakness in extremities [facility] ED PFSH: Medical History Abnormal uterine bleeding (AUB) Aftercare following surgery of the genitourinary system Pelvic pain Surgical History H/O tubal ligation 1998 S/P cholecystectomy 2003 Family History Grandmother Breast cancer maternal Uterine cancer maternal Mother Uterine cancer, Onset Age: 45 Stroke Sister Ovarian cancer, Onset Age: 22 Father Anesthesia complication Diabetes Hypertension Other Clotting disorder Denies family history of Hyperlipidemia Bleeding disorder Social History Smoking and tobacco status: former smoker Quit status (tobacco): has quit using tobacco Year quit tobacco: 2019 Alcohol intake: current Alcohol intake frequency: holidays/special occasions only Alcohol type: wine Female Reproductive History: Date of last menstrual period: 02/28/20 Physical Exam Const: COMMON NORMALS: no acute distress, patient oriented x3 and alert GENERAL APPEARANCE: cooperative and comfortable HENMT: COMMON NORMALS: normocephalic HEAD & SCALP: normocephalic MOUTH: Normal oral and palatal mucosa present THROAT: posterior oropharynx normal and uvula midline Neck/C-Spine: COMMON NORMALS: supple GENERAL: Yes normal visual inspection Resp: COMMON NORMALS: normal respiratory effort, No retractions, No use of accessory muscles and clear to auscultation bilaterally AUSCULTATION: clear to auscultation bilaterally Cardio: COMMON NORMALS: regular rate, regular rhythm, S1 normal heart sound present, S2 normal heart sound present, No gallops present (Cardio), No clicks present (Cardio), No murmurs present (Cardio) and Peripheral pulses 2+ throughout RATE: regular rate RHYTHM: regular rhythm HEART SOUNDS: S1 normal heart sound present and S2 normal heart sound present PERIPHERAL PULSES: Peripheral pulses 2+ throughout GI: COMMON NORMALS: Normal to inspection, nondistended, normoactive bowel sounds present, Soft to palpation, non-tender and no masses PALPATION: Yes Soft to palpation : COMMON NORMALS: Yes no CVA tenderness BLADDER/KIDNEY EXAM: Yes no CVA tenderness Back/Pelvis: COMMON NORMALS: no CVA tenderness Extremity: COMMON NORMALS: no joint enlargement, no calf tenderness and no pedal edema GENERAL: Yes normal exam except as noted RIGHT LOWER EXTREMI TY: Yes knee joint Right knee: Yes inspection (No ecchymosis, swelling or erythema around knee noted), Yes palpation (Tenderness over the lateral aspect of knee), Yes ROM (Limited due to pain.) and Yes neurovascular exam (Intact) Neuro: COMMON NORMALS: patient oriented x3 and moves all extremities SENSORIUM/ORIENTATION: Yes alert Skin: GENERAL SKIN EXAM: dry skin Course Vital Signs: Vital signs: Vital Signs Temperature 98.4 F 11/01/21 18:37 Pulse Rate 83 11/01/21 18:37 Respiratory Rate 20 H 11/01/21 18:37 Blood Pressure 172/95 11/01/21 18:37 Pulse Oximetry 100 11/01/21 18:37 MDM - Extremity (Nontraumatic) Medical Decision Making Patient is a 46-year-old female comes to the ED with right knee pain. Denies any injury or trauma to cause pain. Vitals are stable. Exam is mostly benign and patient has no erythema, ecchymosis or swelling in right knee. Tenderness to the lateral aspect of right knee. Rest of exam is benign. X-ray of right knee showed no acute fractures or findings. Patient diagnosed with right knee strain was discharged home with some crutches. She was also sent with a prescription for Celebrex for pain. Follow-up with PCP in the next week for reevaluation. Return to ED precautions given. Patient understood and agreed with plan. Lab Data Radiology Impressions Knee X-Ray 11/01/21 18:16 IMPRESSION: No acute findings. Discharge Plan Discharge Patient Disposition: Home Clinical Impression: Knee strain Qualifiers: Encounter type: initial encounter Laterality: right Qualified Code(s): S86.911A - Strain of unspecified muscle(s) and tendon(s) at lower leg level, right leg, initial encounter Condition: Stable Prescriptions: New Celebrex 100 mg capsule 100 mg PO BID PRN (Reason: pain) Qty: 30 0RF Discharge Orders: Discharge ED (Routine); Ordered 11/01/21 Ordered By: Tano Hayward Discharge Diet: Regular Discharge Activity: Limit activity as instructed and Use walker/crutches as instructed Patient Instructions: Knee Pain (ED) Activity Restrictions/Additional Instructions: Follow-up with medical provider as directed in the next 7 days for reevaluation. Use crutches and limit weightbearing for the next 2 to 3 days then slowly advance weightbearing as tolerated. Rest, ice and elevate right knee as well. Take medications as prescribed. Return to the ER or your medical provider if condition worsens. Please read and understand discharge instructions. Thank you for choosing [facility] for your healthcare needs today. Please realize this is an emergency room and that we are providing you with a medical screening exam and this may not be complete and all inclusive of all the testing and or work up that you may need to determine your ailment or severity of your illness. It is very important that you follow up as instructed or that you return to the Emergency Department should you have concerns or if your condition changes or worsens in any way. Stand Alone Forms: Work/School Release Coding Level of Care Code ED Neuro Urologist for Chg Fwd Exam Comprehensive
[2021-11-01] MEDS: HYDROcodone-acetaminophen 7.5-325 mg Tablet 1 TAB PO (18:57)
== END 2021-11-01 20:47 | disposition home or self-care (01) ==
PROVIDERS: Emergency Provider Physician Assistant
DX: S86.911A Strain of unspecified muscle(s) and tendon(s) at lower leg level, right leg, initial encounter (principal); X58.XXXA Exposure to other specified factors, initial encounter
CPT/HCPCS: 73562; 99283; E0114

== ENCOUNTER 2021-12-02 13:33 | Emergency (ER) | payer SELFPAY ==
[2021-12-02 13:37] VITALS: BP 147/83; PULSE 96; RESP 18; TEMP 37.2; O2SAT 98
--- NOTE | 2021-12-02 14:20 | ED_ITS ---
HPI - Skin/Abscess/Foreign Bdy General: Chief complaint: Skin/Abscess/Foreign Body Stated complaint: Bit by spider Time Seen by Provider: 12/02/21 14:10 Source: patient Mode of arrival: ambulatory Limitations: no limitations History of Present Illness: Patient is a 46-year-old female presents to ED today with a complaint of an insect bite/sting to her left arm. Patient states earlier today she felt something bite/sting her to her left upper arm and then immediately began noticing a burning sensation. Patient denies rash, swelling to her face/mouth/lips/tongue, no shortness of breath or trouble breathing. No history of anaphylactic reactions to previous bites/stings. MD complaint: insect bite/sting Onset (ago): hour(s) Tetanus up to date: yes Location: LUE Severity: moderate Quality: burning and pruritic Pain Consistency: constant Relieving factors: none Exacerbating factors: none Associated symptoms: Reports no associated symptoms; Deny nausea or vomiting Treatments prior to arrival: none Review of Systems Eyes: Denies: change in vision ENMT: Denies: swelling of lips/tongue Card: Denies: chest pain or palpitations Resp: Denies: dyspnea GI: Denies: nausea or vomiting Musc: Reports: extremity pain; Denies: joint swelling or joint redness Neuro: Denies: numbness in extremities, weakness in extremities or sensory changes [facility] ED PFSH: Medical History Abnormal uterine bleeding (AUB) Aftercare following surgery of the genitourinary system Pelvic pain Surgical History H/O tubal ligation 1998 S/P cholecystectomy 2003 Family History Grandmother Breast cancer maternal Uterine cancer maternal Mother Uterine cancer, Onset Age: 45 Stroke Sister Ovarian cancer, Onset Age: 22 Father Anesthesia complication Diabetes Hypertension Other Clotting disorder Denies family history of Hyperlipidemia Bleeding disorder Social History Smoking and tobacco status: former smoker Quit status (tobacco): has quit using tobacco Year quit tobacco: 2019 Alcohol intake: current Alcohol intake frequency: holidays/special occasions only Alcohol type: wine Female Reproductive History: Date of last menstrual period: 02/28/20 Physical Exam Const: COMMON NORMALS: no acute distress, patient oriented x3, no limitations and alert NUTRITIONAL APPEARANCE: obese ORIENTATION/CONSCIOUSNESS: Yes awake, Yes oriented to person, Yes oriented to place and Yes oriented to time HENMT: FACE & SINUS: normal facial exam MOUTH: Normal oral and palatal mucosa present, lip normal, tongue normal and other (no angioedema) Eye: GENERAL EYE: appearance normal, both eyes and all related structures Neck/C-Spine: GENERAL: Yes normal visual inspection Resp: COMMON NORMALS: normal respiratory effort Extremity: GENERAL: Yes normal exam except as noted EXTREMITY IMAGE (FRONT): 1. pt has an area about 4x4cm to her left upper arm that is slightly erythematous and indurated with a central very small (few mm) area of ecchymosis that was most likely the initial bite/sting; no lymphangitic streaking; area currently appears like a normal reaction following insect bite/sting Neuro: COMMON NORMALS: patient oriented x3, moves all extremities, no focal motor deficits and no sensory deficits noted SENSORIUM/ORIENTATION: Yes alert, Yes oriented to person, Yes oriented to place and Yes oriented to time Course Vital Signs: Vital signs: Vital Signs Temperature 99.0 F 12/02/21 13:37 Pulse Rate 96 12/02/21 13:37 Respiratory Rate 18 12/02/21 13:37 Blood Pressure 147/83 12/02/21 13:37 Pulse Oximetry 98 12/02/21 13:37 MDM - Skin/Abscess/Foreign Bdy Medicial Decision Making At this time patient's clinical appearance appears consistent with normal reaction following an insect bite/sting. She has no signs or symptoms of allergic/anaphylactic reaction. At this point I think conservative management at home including topical and oral Benadryl and topical hydrocortisone cream is appropriate. Strict return to ED precautions verbally discussed with patient. Discharge Plan Discharge Patient Disposition: Home Clinical Impression: Bite or sting by insect Condition: Stable Prescriptions: No Action Celebrex 100 mg capsule 100 mg PO BID PRN (Reason: pain) Qty: 30 0RF Discharge Orders: Discharge ED (Routine); Ordered 12/02/21 Ordered By: Kassie Landers Patient Instructions: Insect Bite or Sting (ED) Coding Level of Care Code ED Percussion Tuner for Magali Gonzáles
== END 2021-12-02 14:35 | disposition home or self-care (01) ==
PROVIDERS: Emergency Provider Physician Assistant
DX: T63.301A Toxic effect of unspecified spider venom, accidental (unintentional), initial encounter (principal); Z87.891 Personal history of nicotine dependence
CPT/HCPCS: 99282

== ENCOUNTER 2021-12-02 19:08 | Emergency (ER) | payer SELFPAY ==
[2021-12-02 19:27] VITALS: BP 152/88; PULSE 92; RESP 18; TEMP 36.6; O2SAT 100
--- NOTE | 2021-12-02 21:10 | W.ED.ALLEREA ---
HPI - Allergic Reaction General: Chief complaint: Allergic Reaction Stated complaint: Allergic Reaction Time Seen by Provider: 12/02/21 21:03 History of Present Illness: HPI narrative: Patient is a 46-year-old female comes to the ED with allergic reaction. Patient took Benadryl for the first time today and states that she started develop pain a pruritic rash on her hands and her feet. Denies any tongue swelling, lip swelling, shortness of breath or throat swelling. She was seen here in the ED earlier today due to a possible spider bite and was given dose of Benadryl here. She started developing the pruritic rash on her hands at that time and then she took some Benadryl later today at home after she was discharged from the ED and she started developing bilateral pruritic rash on feet. She has never had a reaction to a medication like this before. Associated symptoms: Deny abdominal pain, nausea or vomiting Review of Systems Const: Denies: fever(s), chills or fatigue Eyes: Denies: change in vision or eye discomfort ENMT: Denies: throat pain, odynophagia, nasal discharge or nasal congestion Card: Denies: chest pain, palpitations, edema, swelling of feet/ankles, dyspnea on exertion or orthopnea Resp: Denies: dyspnea, productive cough or non-productive cough GI: Denies: abdominal pain, nausea, vomiting, diarrhea, constipation or hematochezia : Denies: flank pain, dysuria or hematuria Musc: Denies: neck pain, back pain or extremity swelling Skin/Breast: Reports: rash (Pruritic hives type rash on bilateral feet and hands.) and pruritus (Bilateral feet and hands.); Denies: new lesions Neuro: Denies: headache(s), numbness in extremities or weakness in extremities PFS ED PFSH: Medical History Abnormal uterine bleeding (AUB) Aftercare following surgery of the genitourinary system Pelvic pain Surgical History H/O tubal ligation 1998 S/P cholecystectomy 2003 Family History Grandmother Breast cancer maternal Uterine cancer maternal Mother Uterine cancer, Onset Age: 45 Stroke Sister Ovarian cancer, Onset Age: 22 Father Anesthesia complication Diabetes Hypertension Other Clotting disorder Denies family history of Hyperlipidemia Bleeding disorder Social History Smoking and tobacco status: former smoker Quit status (tobacco): has quit using tobacco Year quit tobacco: 2019 Alcohol intake: current Alcohol intake frequency: holidays/special occasions only Alcohol type: wine Female Reproductive History: Date of last menstrual period: 02/28/20 Physical Exam Const: COMMON NORMALS: no acute distress, patient oriented x3, healthy appearing and alert GENERAL APPEARANCE: cooperative and comfortable HENMT: COMMON NORMALS: normocephalic HEAD & SCALP: normocephalic MOUTH: Normal oral and palatal mucosa present, lip normal and tongue normal THROAT: posterior oropharynx normal and uvula midline Neck/C-Spine: COMMON NORMALS: supple GENERAL: Yes normal visual inspection Resp: COMMON NORMALS: normal respiratory effort, No retractions, No use of accessory muscles and clear to auscultation bilaterally AUSCULTATION: clear to auscultation bilaterally Cardio: COMMON NORMALS: regular rate, regular rhythm, S1 normal heart sound present, S2 normal heart sound present, No gallops present (Cardio), No clicks present (Cardio), No murmurs present (Cardio) and Peripheral pulses 2+ throughout RATE: regular rate RHYTHM: regular rhythm HEART SOUNDS: S1 normal heart sound present and S2 normal heart sound present PERIPHERAL PULSES: Peripheral pulses 2+ throughout GI: COMMON NORMALS: Normal to inspection, nondistended, normoactive bowel sounds present, Soft to palpation, non-tender and no masses PALPATION: Yes Soft to palpation : COMMON NORMALS: Yes no CVA tenderness BLADDER/KIDNEY EXAM: Yes no CVA tenderness Back/Pelvis: COMMON NORMALS: no CVA tenderness Extremity: NARRATIVE EXTREMITY EXAM: Patient has erythemic hives type rash on hands and feet. Neuro: COMMON NORMALS: patient oriented x3 and moves all extremities SENSORIUM/ORIENTATION: Yes alert Skin: GENERAL SKIN EXAM: dry skin Course Reevaluation(s): Reevaluation #1: After patient received IM Solu-Medrol her rash started improving. Patient was stable for discharge home I told her and sent her home with a prescription for prednisone and I told her to stop taking any Benadryl. Time: 22:00 Vital Signs: Vital signs: Vital Signs Temperature 97.9 F 12/02/21 23:19 Pulse Rate 88 12/02/21 23:19 Respiratory Rate 18 12/02/21 23:19 Blood Pressure 149/84 12/02/21 23:19 Pulse Oximetry 100 12/02/21 23:19 MDM - Allergic Reaction Medical Decision Making Patient is a 46-year-old female comes to the ED after developing hives-like rash after taking Benadryl for the first time. Denies any trouble breathing, lip or tongue swelling. After patient received IM Solu-Medrol her rash started improving. Patient was stable for discharge home I told her and sent her home with a prescription for prednisone and I told her to stop taking any Benadryl. Follow-up with PCP in the next week for reevaluation. Return to ED precautions given. Patient understood and agreed with plan. Discharge Plan Discharge Patient Disposition: Home Clinical Impression: Allergy to drug Condition: Stable Prescriptions: New prednisone 20 mg tablet 20 mg PO BID 3 Days Qty: 6 0RF No Action Celebrex 100 mg capsule 100 mg PO BID PRN (Reason: pain) Qty: 30 0RF Discharge Orders: Discharge ED (Routine); Ordered 12/02/21 Ordered By: Tano Hayward Discharge Diet: Regular Discharge Activity: Increase activity as tolerated Patient Instructions: Allergic Reaction Activity Restrictions/Additional Instructions: Follow-up with medical provider as directed in the next 5 to 7 days reevaluation. You are likely allergic to Benadryl also do not take in the future. Take medications as prescribed. Return to the ER or your medical provider if condition worsens. Please read and understand discharge instructions. Thank you for choosing [facility] for your healthcare needs today. Please realize this is an emergency room and that we are providing you with a medical screening exam and this may not be complete and all inclusive of all the testing and or work up that you may need to determine your ailment or severity of your illness. It is very important that you follow up as instructed or that you return to the Emergency Department should you have concerns or if your condition changes or worsens in any way. Stand Alone Forms: Work/School Release Coding Level of Care Code ED Fleet Sales Manager for Magali Fwsarah Exam Comprehensive
[2021-12-02 23:19] VITALS: BP 149/84; PULSE 88; RESP 18; TEMP 36.6; O2SAT 100
== END 2021-12-02 23:20 | disposition home or self-care (01) ==
PROVIDERS: Emergency Provider Physician Assistant
DX: L50.0 Allergic urticaria (principal); T45.0X5A Adverse effect of antiallergic and antiemetic drugs, initial encounter
CPT/HCPCS: 96372; 99283; J2930

== ENCOUNTER 2021-12-18 18:16 | Emergency (ER) | payer SELFPAY ==
[2021-12-18 18:33] VITALS: BP 186/97; PULSE 81; RESP 18; TEMP 36.7; O2SAT 99
[2021-12-18 18:47] VITALS: BP 186/97; PULSE 81; RESP 18; TEMP 36.7; O2SAT 99
[2021-12-18 18:58] LABS: Basophils # 0.1 10^3/uL (0.0-0.1); Basophils % 0.4 %; Eosinophils # 0.3 10^3/uL (0.0-0.8); Eosinophils % 2.8 %; Hematocrit 41.8 % (37.0-47.0); Hemoglobin 13.6 g/dL (11.5-15.3); Lymphocytes # 2.4 10^3/uL (0.8-4.8); Lymphocytes % 20.3 %; Mean Corpuscular HGB Conc 32.5 g/dL (30.0-36.0); Mean Corpuscular Hemoglobin 27.6 pg (28.0-34.0); Mean Corpuscular Volume 84.8 fl (81-99); Mean Platelet Volume 9.9 fL (7.4-10.4); Monocytes # 0.6 10^3/uL (0.2-0.9); Monocytes % 4.8 %; Neutrophils % 71.5 %; Nucleated Red Blood Cells % 0 %; Platelet Count 269 10^3/cmm (130-400); Red Blood Count 4.93 10^6/uL (4.1-5.3); Red Cell Distribution Width 13.6 % (12.1-15.1)
--- NOTE | 2021-12-18 19:04 | ED_ITS ---
HPI - Skin/Abscess/Foreign Bdy General: Chief complaint: Skin/Abscess/Foreign Body Stated complaint: Spider bite on left arm Time Seen by Provider: 12/18/21 18:37 Source: patient Mode of arrival: ambulatory Limitations: no limitations History of Present Illness: 46-year-old female who states she had been bitten by a brown recluse 3 weeks ago patient was seen on the 10th placed on steroids she states that its worsened with some necrosis and she has had fevers today. She had some pain as well she has had some slight oozing from the wound denies any worsening improving factors patient has not seen any wound care. Associated symptoms: Deny chills, fever(s), nausea or vomiting Review of Systems Const: Denies: fever(s), chills, body aches or change in appetite Eyes: Denies: blurry vision or eye discomfort ENMT: Denies: throat pain or dental pain Card: Denies: chest pain Resp: Denies: dyspnea GI: Denies: abdominal pain, nausea, vomiting or diarrhea : Denies: dysuria Musc: Denies: neck pain or back pain Skin/Breast: Denies: rash Neuro: Denies: headache(s) Psych: Denies: depression Michael/Lymph: Denies: easy bruising All/Imm: Denies: urticaria PFSH ED PFSH: Medical History Abnormal uterine bleeding (AUB) Aftercare following surgery of the genitourinary system Pelvic pain Surgical History H/O tubal ligation 1998 S/P cholecystectomy 2003 Family History Grandmother Breast cancer maternal Uterine cancer maternal Mother Uterine cancer, Onset Age: 45 Stroke Sister Ovarian cancer, Onset Age: 22 Father Anesthesia complication Diabetes Hypertension Other Clotting disorder Denies family history of Hyperlipidemia Bleeding disorder Social History Smoking and tobacco status: former smoker Quit status (tobacco): has quit using tobacco Year quit tobacco: 2019 Alcohol intake: current Alcohol intake frequency: holidays/special occasions on ly Alcohol type: wine Female Reproductive History: Date of last menstrual period: 02/28/20 Physical Exam Const: COMMON NORMALS: no acute distress, patient oriented x3 and healthy appearing HENMT: COMMON NORMALS: normocephalic and atraumatic HEAD & SCALP: normocephalic and atraumatic Eye: COMMON NORMALS: Equal, round and reactive pupils present and EOMs intact bilaterally PUPIL: Yes Equal, round and reactive pupils present Neck/C-Spine: COMMON NORMALS: full ROM and supple Chest: COMMONS NORMALS: normal inspection of the chest and normal palpation of entire chest wall Resp: COMMON NORMALS: normal respiratory effort, No retractions, No use of accessory muscles and clear to auscultation bilaterally AUSCULTATION: clear to auscultation bilaterally Cardio: COMMON NORMALS: regular rate, regular rhythm and No murmurs present (Cardio) RATE: regular rate RHYTHM: regular rhythm GI: COMMON NORMALS: Normal to inspection, nondistended, normoactive bowel sounds present, Soft to palpation, non-tender and no masses PALPATION: Yes Soft to palpation Extremity: COMMON NORMALS: normal to inspection and full ROM Neuro: COMMON NORMALS: patient oriented x3, moves all extremities and no focal motor deficits Psych: COMMON NORMALS: mental status grossly normal, Normal thought process present and cooperative THOUGHT PROCESS: Normal thought process present Skin: NARRATIVE SKIN EXAM: Wound to the left arm with some slight necrosis and erythema roughly 2 to 3 cm in diameter. Course Vital Signs: Vital signs: Vital Signs Temperature 98.1 F 12/18/21 18:47 Pulse Rate 81 12/18/21 18:47 Respiratory Rate 18 12/18/21 18:47 Blood Pressure 186/97 12/18/21 18:47 Pulse Oximetry 99 12/18/21 18:47 MDM - Skin/Abscess/Foreign Bdy Medicial Decision Making Patient presents with a brown recluse bite she does have some mild necrosis al manpreet with some cellulitis shared image with Dr. Chad Carrasquillo him both agree she does not need admission at this time we will start an antibiotic along with Santyl cream and get her follow-up with wound care she understands agrees to plan she is return if worsening. Lab Data : 12/18/21 18:52 12/18/21 18:52 Laboratory Results WBC 12.0 10^3/uL (4.0-10.0) H 12/18/21 18:52 RBC 4.93 10^6/uL (4.1-5.3) 12/18/21 18:52 Hgb 13.6 g/dL (11.5-15.3) 12/18/21 18:52 Hct 41.8 % (37.0-47.0) 12/18/21 18:52 MCV 84.8 fl (81-99) 12/18/21 18:52 MCH 27.6 pg (28.0-34.0) L 12/18/21 18:52 MCHC 32.5 g/dL (30.0-36.0) 12/18/21 18:52 RDW 13.6 % (12.1-15.1) 12/18/21 18:52 Plt Count 269 10^3/cmm (130-400) 12/18/21 18: MPV 9.9 fL (7.4-10.4) 12/18/21 18:52 Neut % (Auto) 71.5 % 12/18/21 18: Lymph % (Auto) 20.3 % 12/18/21 18:52 [place] % (Auto) 4.8 % 12/18/21 18:52 Eos % (Auto) 2.8 % 12/18/21 18:52 Baso % (Auto) 0.4 % 12/18/21 18:52 Neut # (Auto) 8.60 10^3/uL (1.8-7.7) H 12/18/21 18:52 Lymph # (Auto) 2.4 10^3/uL (0.8-4.8) 12/18/21 18:52 [place] # (Auto) 0.6 10^3/uL (0.2-0.9) 12/18/21 18:52 Eos # (Auto) 0.3 10^3/uL (0.0-0.8) 12/18/21 18:52 Baso # (Auto) 0.1 10^3/uL (0.0-0.1) 12/18/21 18:52 Nucleated RBC % (auto) 0 % 12/18/21 18: Nucleated RBCs # 0.0 /100WBC 12/18/21 18:52 Sodium 138 mmol/L (136-145) 12/18/21 18:52 Potassium 3.9 mmol/L (3.5-5.1) 12/18/21 18:52 Chloride 99 mmol/L (98-107) 12/18/21 18:52 Carbon Dioxide 28 mmol/L (22-29) 12/18/21 18:52 Anion Gap 14.9 (5-19) 12/18/21 18:52 BUN 11 mg/dL (6-20) 12/18/21 18:52 Creatinine 0.7 mg/dL (0.5-0.9) 12/18/21 18:52 GFR Calculation 90.9 mL/min (90-130) 12/18/21 18:52 Glucose 144 mg/dL (65-115) H 12/18/21 18:52 Calculated Osmolality 288 mOsm/kg (285-295) 12/18/21 18:52 Calcium 9.5 mg/dL (8.5-10.5) 12/18/21 18:52 Total Bilirubin 0.2 mg/dL (0.15-1.2) 12/18/21 18:52 AST 12 U/L (0-32) 12/18/21 18:52 ALT 18 U/L (0-33) 12/18/21 18:52 Alkaline Phosphatase 108 IU/L (35-105) H 12/18/21 18:52 Total Protein 7.1 g/dL (6.6-8.7) 12/18/21 18:52 Albumin 4.2 g/dL (3.5-5.2) 12/18/21 18:52 Globulin 2.9 g/dL (1.3-4.6) 12/18/21 18:52 Discharge Plan Discharge Patient Disposition: Home Clinical Impression: Brown recluse spider bite Qualifiers: Encounter type: initial encounter Injury intent: accidental or unintentional Qualified Code(s): T63.331A - Toxic effect of venom of brown recluse spider, accidental (unintentional), initial encounter Condition: Stable Prescriptions: New Bactrim DS 800-160 mg tablet 1 tab PO BID 10 Days Qty: 20 0RF Santyl 250 unit/gram ointment 1 applic topical BID 7 Days Qty: 90 0RF No Action Celebrex 100 mg capsule 100 mg PO BID PRN (Reason: pain) Qty: 30 0RF Discharge Orders: Discharge ED (Routine); Ordered 12/18/21 Ordered By: Parker Norris Referrals: [facility], [Staff Physician] - 1-3 days Discharge Diet: Advance as tolerated Discharge Activity: Use walker/crutches as instructed Patient Instructions: Ochoa Castellano Spider Bite (ED) Coding Level of Care Code ED Metal Annealer for Chg Fwd Exam Comprehensive
[2021-12-18 19:13] LABS: Alanine Aminotransferase 18 U/L (0-33); Albumin Level 4.2 g/dL (3.5-5.2); Alkaline Phosphatase 108 IU/L (35-105); Anion Gap 14.9 (5-19); Aspartate Amino Transferase 12 U/L (0-32); Blood Urea Nitrogen 11 mg/dL (6-20); Calcium 9.5 mg/dL (8.5-10.5); Carbon Dioxide 28 mmol/L (22-29); Chloride 99 mmol/L (98-107); Globulin 2.9 g/dL (1.3-4.6); Glomerular Filtration Rate 90.9 mL/min (90-130); Glucose 144 mg/dL (65-115); Osmolality Calculated 288 mOsm/kg (285-295); Potassium 3.9 mmol/L (3.5-5.1); Sodium 138 mmol/L (136-145); Total Bilirubin 0.2 mg/dL (0.15-1.2); Total Protein 7.1 g/dL (6.6-8.7)
[2021-12-18 19:36] VITALS: BP 193/97; PULSE 77; RESP 18; O2SAT 99
[2021-12-18 19:45] VITALS: RESP 18; O2SAT 98
[2021-12-18] MEDS: morphine 4 mg/mL SDV 1 mL IVP (19:45)
[2021-12-18] MEDS: sulfamethoxazole-trimeth DS 160-800 mg Tablet 1 TAB PO (19:46)
[2021-12-18] MEDS: ondansetron 2 mg/ML SDV 2 mL 4 MG IVP (19:46)
[2021-12-18 19:58] VITALS: BP 193/97; PULSE 77; RESP 18; O2SAT 98
--- NOTE | 2021-12-19 09:52 | DCPLANNER ---
Addendum entered by Carol Thacker 01/01/22 15:00: manager activities spoke with Christine at [facility] was told that clinic has not been able to reach patient to schedule an appointment. Original Note: manager activities had message to schedule followup appointment for patient with [facility]. manager activities sent patients information to the front office staff at [facility]. Patients information will be printed and reviewed. Clinic will call patient with appointment information.
[2021-12-19 16:33] LABS: Bacillus cereus group Not Detected (NOT DETECT); Bacillus subtillis group Not Detected (NOT DETECT); Corynebacterium Not Detected (NOT DETECT); Cutibacterium acnes (P.acnes) Not Detected (NOT DETECT); Enterococcus Not Detected (NOT DETECT); Enterococcus faecalis Not Detected (NOT DETECT); Enterococcus faecium Not Detected (NOT DETECT); Lactobacillus species Not Detected (NOT DETECT); Listeria Not Detected (NOT DETECT); Listeria monocytogenes Not Detected (NOT DETECT); Micrococcus Not Detected (NOT DETECT); Pan Candida Not Detected (NOT DETECT); Pan Gram-Negative Not Detected (NOT DETECT); Staphylococcus epidermidis Detected (NOT DETECT); Staphylococcus lugdunensis Not Detected (NOT DETECT); Staphylococcus species Detected (NOT DETECT); Streptococcus agalactiae Not Detected (NOT DETECT); Streptococcus anginosus group Not Detected (NOT DETECT); Streptococcus pneumoniae Not Detected (NOT DETECT); Streptococcus pyogenes Not Detected (NOT DETECT); Streptococcus species Not Detected (NOT DETECT); mecA Not Detected (NOT DETECT); mecC Not Detected (NOT DETECT)
--- NOTE | 2021-12-19 17:20 | PC.NURSE ---
Notified by Lab. 1 out of 4 samples positive for Gram positive rods. PCR resulted Staphlococcus Epidermitis.
== END 2021-12-18 20:00 | disposition home or self-care (01) ==
PROVIDERS: Emergency Provider Emergency Medicine
DX: T63.331A Toxic effect of venom of brown recluse spider, accidental (unintentional), initial encounter (principal)
CPT/HCPCS: 80053; 85025; 87040; 87150; 87205; 96374; 96375; 99284; J2270; J2405

== ENCOUNTER 2023-09-05 22:02 | Emergency (ER) | payer SELFPAY ==
[2023-09-05 22:04] VITALS: BP 179/111; PULSE 89; RESP 20; TEMP 36.5; O2SAT 96; BMI 48.0
--- NOTE | 2023-09-06 00:10 | W.ED.BACK ---
HPI - Back Pain/Injury General: Chief Complaint: Back Pain/Injury Stated Complaint: Back Pain\Leg Numbness Time Seen by Provider: 09/06/23 00:10 History of Present Illness: 47-year-old female comes in today with low back pain radiating down her right leg. Patient appears nontoxic. Patient reports pain for about 1 week. Patient was seen 4 days ago at urgent care and given some muscle laxer with minimal relief. Patient appears nontoxic. Patient denies any loss of bowel or bladder control. Patient is morbidly obese. Patient denies any new injury. Review of Systems General: Reports: 10 or more systems reviewed and unremarkable except in HPI and below Musc: Reports: back pain PFSH ED PFSH: Medical History Abnormal uterine bleeding (AUB) Aftercare following surgery of the genitourinary system Pelvic pain Surgical History H/O tubal ligation 1998 S/P cholecystectomy 2003 Family History Grandmother Breast cancer maternal Uterine cancer maternal Mother Uterine cancer, Onset Age: 45 Stroke Sister Ovarian cancer, Onset Age: 22 Father Anesthesia complication Diabetes Hypertension Other Clotting disorder Denies family history of Hyperlipidemia Bleeding disorder Social History Smoking and tobacco/nicotine status: former use of tobacco/nicotine Quit status (tobacco/nicotine): has quit using Year quit tobacco: 2020 Alcohol intake: current Alcohol intake frequency: holidays/special occasions only Alcohol type: wine Substance/Drug Use: never Physical Exam Const: COMMON NORMALS: alert HENMT: COMMON NORMALS: normocephalic HEAD & SCALP: normocephalic Neck/C-Spine: COMMON NORMALS: full ROM Resp: COMMON NORMALS: normal respiratory effort and clear to auscultation bilaterally AUSCULTATION: clear to auscultation bilaterally Cardio: COMMON NORMALS: regular rate and regular rhythm RATE: regular rate RHYTHM: regular rhythm Back/Pelvis: LUMBAR SPINE/LOWER BACK: Yes paraspinal muscle tenderness Lumbar paraspinal muscle tenderness: right Extremity: COMMON NORMALS: full ROM Neuro: SENSORIUM/ORIENTATION: Yes alert Skin: COMMON NORMALS: turgor normal GENERAL SKIN EXAM: turgor normal Course Vital Signs: Vital signs: Vital Signs Temperature 97.7 F 09/05/23 22:04 Pulse Rate 89 09/05/23 22:04 Respiratory Rate 20 H 09/05/23 22:04 Blood Pressure 179/111 09/05/23 22:04 Pulse Oximetry 96 09/05/23 22:04 Oxygen Delivery Me thod Room Air 09/05/23 22:04 MDM - Back Pain/Injury Medical Decision Making 47-year-old female comes in today with back pain. On exam patient has muscle tenderness and tightness to the right paraspinous muscles of the lower thoracic and lumbar spine. Respirations are even lungs are clear to auscultation. Abdomen soft nontender. Vital signs are normal except for some elevated blood pressure. Differential diagnosis includes intervertebral disc disease, facet arthropathy, lumbar strain, lumbar radiculopathy. Patient was given Toradol and dexamethasone for pain and inflammation. Patient was given 1 hydrocodone for further pain relief. Patient was recommended use diclofenac and hydrocodone for further pain relief. Patient reported understanding of care plan need for follow-up or return to the ER. No radiology studies performed this visit Discharge Plan Discharge Patient Disposition: Home Clinical Impression: Sciatica Qualifiers: Laterality: right Qualified Code(s): M54.31 - Sciatica, right side Condition: Stable Prescriptions: New hydrocodone-acetaminophen 5-325 mg tablet 1 tab PO Q6H PRN (Reason: pain) Qty: 10 0RF diclofenac sodium 75 mg tablet,delayed release (DR/EC) 75 mg PO BID Qty: 20 0RF Discontinued tramadol 50 mg tablet 50 mg PO Q8H PRN (Reason: pain) Qty: 10 0RF celecoxib [Celebrex] 100 mg capsule 100 mg PO BID PRN (Reason: pain) Qty: 30 0RF hydrocodone-acetaminophen 5-325 mg tablet 1 tab PO Q6H PRN (Reason: pain) Qty: 14 0RF No Action cyclobenzaprine 5 mg tablet 5 mg PO TID PRN (Reason: muscle spasm) Qty: 20 0RF Discharge Orders: Discharge ED (Routine); Ordered 09/06/23 Ordered By: Maurice Burk Discharge Diet: Usual diet Discharge Activity: Increase activity as tolerated Patient Instructions: Opioid Safety, Pain Management Activity Restrictions/Additional Instructions: Home and rest. Activity as tolerated. Follow-up with primary care in 2 to 3 days for recheck. Return to ED for new concerns such as high fever, shortness of breath, or loss of bowel or bladder control. Coding Level of Care Code ED Unemployment Insurance Hearing Officer for Magali Gonzáles
[2023-09-06] MEDS: dexamethasone 10 mg/mL INJ IM (00:23)
[2023-09-06] MEDS: HYDROcodone-acetaminophen 10-325 mg Tablet 1 TAB PO (00:23)
[2023-09-06] MEDS: ketorolac 30 mg/mL INJ IM (00:23)
[2023-09-06 00:43] VITALS: BP 179/111; PULSE 89; RESP 20; TEMP 36.5; O2SAT 96
== END 2023-09-06 00:44 | disposition home or self-care (01) ==
PROVIDERS: Emergency Provider Nurse Practitioner Family
DX: M54.31 Sciatica, right side (principal); Z87.891 Personal history of nicotine dependence
CPT/HCPCS: 96372; 99284; J1100; J1885

== ENCOUNTER 2024-01-23 13:33 | Emergency (ER) | payer SELFPAY ==
[2024-01-23 13:47] VITALS: BP 158/92; PULSE 84; RESP 18; TEMP 36.6; O2SAT 96
--- NOTE | 2024-01-23 15:42 | XRR_ITS ---
PROCEDURE INFORMATION: Exam: XR Chest Exam date and time: 01/23/2024 3:56 PM Age: 48 years old Clinical indication: Cough; Additional info: Prod cough, wheezing TECHNIQUE: Imaging protocol: Radiologic exam of the chest. Views: 1 view. COMPARISON: CR XR chest 1V [id number] 04/24/2018 3:08 PM FINDINGS: Lungs: Unremarkable. No consolidation. Pleural spaces: Unremarkable. No pleural effusion. No pneumothorax. Heart/Mediastinum: Unremarkable. No cardiomegaly. Bones/joints: Unremarkable. XR/XR chest 1V portable [id number] IMPRESSION: No acute findings.
--- NOTE | 2024-01-23 15:48 | ED_ITS ---
HPI - URI/Sore Throat General: Chief Complaint: Upper Respiratory Infection Stated Complaint: sorethroat / fever Time Seen by Provider: 01/23/24 15:33 Source: patient Mode of arrival: ambulatory Limitations: no limitations History of Present Illness: Patient is a 48-year-old female presenting to the emergency department complaining of sore throat productive cough over the past few days. She notes a history of seasonal bronchitis and states that this feels identical. She has been having wheezing and notes yellow mucus productive with her coughs. She is not having any fevers at this time though states she has been feeling hot. No history of COPD or asthma, does not use inhaler. She reportedly is a former smoker. No other symptoms to report at this time. MD elicited complaint: cough and sore throat Onset (ago): day(s) Consistency: constant and progressively worsening Description of mucous: yellow Able to tolerate fluids by mouth: Yes Context: sick contacts Associated symptoms: Deny abdominal pain, chills, chest pain, diarrhea, ear or mastoid pain, fever(s), headache(s), nausea or vomiting Review of Systems General: Reports: 10 or more systems reviewed and unremarkable except in HPI and below Const: Denies: fever(s), chills or fatigue Eyes: Denies: change in vision ENMT: Reports: throat pain; Denies: ear or mastoid pain or nasal discharge Card: Denies: chest pain, palpitations, swelling of feet/ankles or lightheadedness Resp: Reports: productive cough and wheezing; Denies: dyspnea GI: Denies: abdominal pain, nausea, vomiting, diarrhea or constipation : Denies: flank pain, difficulty voiding, dysuria or urinary frequency Musc: Denies: neck pain, back pain or joint pain Skin/Breast: Denies: rash Neuro: Denies: headache(s), numbness in extremities or weakness in extremities PFSH ED PFSH: Medical History Aftercare following surgery of the genitourinary system Pelvic pain Abnormal uterine bleeding (AUB) Surgical History H/O tubal ligation 1998 S/P cholecystectomy 2004 Family History Grandmother Breast cancer maternal Uterine cancer maternal Mother Uterine cancer, Onset Age: 45 Stroke Sister Ovarian cancer, Onset Age: 22 Father Anesthesia complication Diabetes Hypertension Other Clotting disorder Denies family history of Hyperlipidemia Bleeding disorder Social History Smoking and tobacco/nicotine status: former use of tobacco/nicotine Quit status (tobacco/nicotine): has quit using Year quit tobacco: 2020 Alcohol intake: current Alcohol intake frequency: holidays/special occasions only Alcohol type: wine Substance/Drug Use: never Physical Exam Const: COMMON NORMALS: no acute distress, patient oriented x3 and no limitations GENERAL APPEARANCE: cooperative, comfortable and well developed NUTRITIONAL APPEARANCE: obese morbidly obese ORIENTATION/CONSCIOUSNESS: Yes awake, Yes oriented to person, Yes oriented to place and Yes oriented to time HENMT: COMMON NORMALS: normocephalic, atraumatic and hearing grossly normal bilaterally HEAD & SCALP: normocephalic and atraumatic Eye: COMMON NORMALS: Equal, round and reactive pupils present, EOMs intact bilaterally and conjunctivae normal CONJUNCTIVA: Yes conjunctivae normal PUPIL: Yes Equal, round and reactive pupils present Neck/C-Spine: COMMON NORMALS: full ROM, supple and no JVD Resp: COMMON NORMALS: normal respiratory effort, No retractions and No use of accessory muscles AUSCULTATION: wheezes (Diffuse expiratory wheezing) Cardio: COMMON NORMALS: no JVD, regular rate, regular rhythm, No clicks present (Cardio), No murmurs present (Cardio) and No rub (Cardio) RATE: regular rate RHYTHM: regular rhythm Extremity: COMMON NORMALS: normal to inspection, full ROM and capillary refill normal Neuro: COMMON NORMALS: patient oriented x3, moves all extremities, no focal motor deficits and no sensory deficits noted SENSORIUM/ORIENTATION: Yes oriented to person, Yes oriented to place and Yes oriented to time Psych: COMMON NORMALS: mental status grossly normal and Normal thought process present THOUGHT PROCESS: Normal thought process present Skin: COMMON NORMALS: no rashes or lesions noted GENERAL SKIN EXAM: no rashes or lesions noted Course Vital Signs: Vital signs: Vital Signs Temperature 97.8 F 01/23/24 17:02 Pulse Rate 84 01/23/24 17:02 Respiratory Rate 18 01/23/24 17:02 Blood Pressure 158/92 01/23/24 17:02 Pulse Oximetry 96 01/23/24 17:02 Oxygen Delivery Me thod Room Air 01/23/24 13:47 MDM - URI/Sore Throat Medical Decision Making Patient presented for complaints that she is having exacerbation of bronchitis. On physical examination she did have some diffuse expiratory wheezing, and did have some coughing. Also was reporting some productive coughing. Overall her vitals are unremarkable as her oxygen saturation was normal. Chest x-ray did not demonstrate any acute focal pneumonia. Her respiratory panel did show enterovirus. However, due to her active cough and history of similar, will prescribe Z-Peter and steroids for bronchitis infection. She will follow-up with primary care and return with any new or worsening. Lab Data Radiology Impressions Chest X-Ray 01/23/24 15:42 IMPRESSION: No acute findings. Laboratory Results Adenovirus (PCR) Not detected (NOT DETECT) 01/23/24 15:46 C. pneumoniae DNA (PCR) Not detected (NOT DETECT) 01/23/24 15:46 Coronavirus 229E (PCR) Not detected (NOT DETECT) 01/23/24 15:46 Human Metapneumovir PCR Not detected (NOT DETECT) 01/23/24 15:46 Influenza A (H1) PCR Not detected (NOT DETECT) 01/23/24 15:46 Influ A (H1/09) PCR Not detected (NOT DETECT) 01/23/24 15:46 Influenza A (H3) PCR Not detected (NOT DETECT) 01/23/24 15:46 Influenza Type A (PCR) Not detected (NOT DETECT) 01/23/24 15:46 Influenza Type B (PCR) Not detected (NOT DETECT) 01/23/24 15:46 M. pneumoniae (PCR) Not detected (NOT DETECT) 01/23/24 15:46 Parainfluenza 1 (PCR) Not detected (NOT DETECT) 01/23/24 15:46 Parainfluenza 2 (PCR) Not detected (NOT DETECT) 01/23/24 15:46 Parainfluenza 3 (PCR) Not detected (NOT DETECT) 01/23/24 15:46 Parainfluenza 4 (PCR) Not detected (NOT DETECT) 01/23/24 15:46 RSV Type A (PCR) Not detected (NOT DETECT) 01/23/24 15:46 RSV Type B (PCR) Not detected (NOT DETECT) 01/23/24 15:46 Entero/Rhino (PCR) Detected (NOT DETECT) A 01/23/24 15:46 SARS-CoV-2 (PCR) Not detected (NOT DETECT) 01/23/24 15:46 XR interpretation done by ED provider, pending radiology final review Discharge Plan Discharge Patient Disposition: Home Clinical Impression: Acute bronchitis, RAD (reactive airway disease) Condition: Stable Prescriptions: New prednisone 20 mg tablet 60 mg PO ONCE 5 Days Qty: 15 0RF albuterol sulfate 90 mcg/actuation HFA aerosol inhaler 1 inh inhalation Q6H PRN (Reason: shortness of breath or wheezing) Qty: 6.7 0RF azithromycin 500 mg tablet 500 mg PO DAILY 5 Days Qty: 5 0RF No Action cyclobenzaprine 5 mg tablet 5 mg PO TID PRN (Reason: muscle spasm) Qty: 20 0RF hydrocodone-acetaminophen 5-325 mg tablet 1 tab PO Q6H PRN (Reason: pain) Qty: 10 0RF diclofenac sodium 75 mg tablet,delayed release (DR/EC) 75 mg PO BID Qty: 20 0RF Discharge Orders: Discharge ED (Routine); Ordered 01/23/24 Ordered By: Aries Escobedo Discharge Diet: Usual diet Discharge Activity: Increase activity as tolerated Patient Instructions: Chronic Bronchitis (ED) Activity Restrictions/Additional Instructions: Take antibiotics and steroids as prescribed. Contagion precaution. Plenty of fluids. Follow-up with primary care. Return with any new or worsening. 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
[2024-01-23 17:02] VITALS: BP 158/92; PULSE 84; RESP 18; TEMP 36.6; O2SAT 96
[2024-01-23 17:54] LABS: Adenovirus Not Detected (NOT DETECT); Chlamydia Pneumoniae Not Detected (NOT DETECT); Coronavirus 229E,HKU1,NL63,OC4 Not Detected (NOT DETECT); Human Metapneumovirus Not Detected (NOT DETECT); Human Rhinovirus/Enterovirus Detected (NOT DETECT); Influenza A Not Detected (NOT DETECT); Influenza A H1 Not Detected (NOT DETECT); Influenza A H1-2009 Not Detected (NOT DETECT); Influenza A H3 Not Detected (NOT DETECT); Influenza B Not Detected (NOT DETECT); Mycoplasma Pneumoniae Not Detected (NOT DETECT); Parainfluenza Virus Type 1 Not Detected (NOT DETECT); Parainfluenza Virus Type 2 Not Detected (NOT DETECT); Parainfluenza Virus Type 3 Not Detected (NOT DETECT); Parainfluenza Virus Type 4 Not Detected (NOT DETECT); Respiratory Syncytial Virus A Not Detected (NOT DETECT); Respiratory Syncytial Virus B Not Detected (NOT DETECT); SARS-COV-2 Not Detected (NOT DETECT)
== END 2024-01-23 17:03 | disposition home or self-care (01) ==
PROVIDERS: Emergency Provider Physician Assistant
DX: J20.9 Acute bronchitis, unspecified (principal); J45.909 Unspecified asthma, uncomplicated; Z11.52 Encounter for screening for COVID-19; Z87.891 Personal history of nicotine dependence
CPT/HCPCS: 71045; 87486; 87581; 87633; 99284

== ENCOUNTER 2024-05-14 14:03 | Emergency (ER) | payer SELFPAY ==
[2024-05-14 14:13] VITALS: BP 182/96; PULSE 84; TEMP 36.7; O2SAT 94; BMI 48.0
--- NOTE | 2024-05-14 14:27 | ED_ITS ---
HPI - Dental/Oral General: Chief complaint: Dental/Oral Stated complaint: jaw pain radiating into neck, head Time Seen by Provider: 05/14/24 14:26 History of Present Illness: 48-year-old female comes in today for co ntinued pain and discomfort to the lower front teeth. Patient states that she is seeing her dentist and he had just started her on some amoxicillin about 2 days ago. Patient reports no improvement in pain and worsening discomfort. Patient appears nontoxic. Patient appears in moderate pain. Related Data Previous Rx's Medication Instructions Recorded cyclobenzaprine 5 mg tablet 5 mg PO TID PRN muscle spasm #20 08/25/23 tabs diclofenac sodium 75 mg 75 mg PO BID #20 tabs 09/06/23 tablet,delayed release hydrocodone 5 mg-acetaminophen 325 1 tab PO Q6H PRN pain #10 tabs 09/06/23 mg tablet albuterol sulfate 90 mcg/actuation 1 inh inhalation Q6H PRN shortness 01/23/24 aerosol inhaler of breath or wheezing #6.7 grams chlorhexidine gluconate 0.12 % 15 ml buccal BID #473 mL 05/14/24 mouthwash (Peridex) hydrocodone 5 mg-acetaminophen 325 1 tab PO Q6H PRN pain #7 tabs 05/14/24 mg tablet lidocaine HCl 2 % mucosal solution 1 applic mucous membrane Q3H PRN 05/14/24 (Lidocaine Viscous) pain #100 mL metronidazole 500 mg tablet 500 mg PO Q8H 7 days #21 tabs 05/14/24 Allergies Allergy/AdvReac Type Severity Reaction Status Date / Time No Known Allergies Allergy Verified 05/14/24 14:16 Review of Systems General: Reports: 10 or more systems reviewed and unremarkable except in HPI and below ENMT: Reports: dental pain PFSH ED PFSH: Medical History Aftercare following surgery of the genitourinary system Pelvic pain Abnormal uterine bleeding (AUB) Surgical History H/O tubal ligation 1998 S/P cholecystectomy 2003 Family History Grandmother Breast cancer maternal Uterine cancer maternal Mother Uterine cancer, Onset Age: 45 Stroke Sister Ovarian cancer, Onset Age: 22 Father Anesthesia complication Diabetes Hypertension Other Clotting disorder Denies family history of Hyperlipidemia Bleeding disorder Social History Smoking and tobacco/nicotine status: former use of tobacco/nicotine Quit status (tobacco/nicotine): has quit using Year quit tobacco: 2020 Alcohol intake: current Alcohol intake frequency: holidays/special occasions only Alcohol type: wine Substance/Drug Use: never Physical Exam Const: COMMON NORMALS: alert HENMT: COMMON NORMALS: normocephalic HEAD & SCALP: normocephalic TEETH & GINGIVA: Yes other (Severe erosion of the gingiva with erythema and whitish eschar) Neck/C-Spine: COMMON NORMALS: full ROM Resp: COMMON NORMALS: normal respiratory effort Cardio: COMMON NORMALS: regular rate RATE: regular rate Back/Pelvis: COMMON NORMALS: thoracic and lumbar spine normal to inspection Extremity: COMMON NORMALS: full ROM Neuro: SENSORIUM/ORIENTATION: Yes alert Skin: COMMON NORMALS: turgor normal GENERAL SKIN EXAM: turgor normal Course Vital Signs: Vital signs: Vital Signs Temperature 98.0 F 05/14/24 14:13 Pulse Rate 84 05/14/24 14:13 Blood Pressure 182/96 05/14/24 14:13 Pulse Oximetry 94 05/14/24 14:13 Oxygen Delivery Me thod Room Air 05/14/24 14:13 MDM - Dental/Oral Medical Decision Making Patient comes in today for complaints of dental pain. On exam patient has severe erosion of the gingiva with eschar and redness to the gingiva. This is in the area patient is complaining of pain. Posterior pharynx is normal. Patient is handling secretions well. Differential diagnosis dental caries, dental pain, dental abscess, gingivostomatitis, necrotizing gingivitis. Believe the patient has a case of necrotizing gingivitis which we will treat with Flagyl and continue her on her amoxicillin. Patient was also given Peridex mouthwash and some viscous lidocaine to help with pain. Patient was also given 7 tablets of hydrocodone for severe pain. Patient was instructed to follow back up with dentist for treatment of this problem. No radiology studies performed this visit Discharge Plan Discharge Patient Disposition: Home Clinical Impression: Necrotizing gingivitis Condition: Stable Prescriptions: New metronidazole 500 mg tablet 500 mg PO Q8H 7 Days Qty: 21 0RF hydrocodone-acetaminophen 5-325 mg tablet 1 tab PO Q6H PRN (Reason: pain) Qty: 7 0RF lidocaine HCl [Lidocaine Viscous] 2 % solution 1 applic mucous membrane Q3H PRN (Reason: pain) Qty: 100 0RF chlorhexidine gluconate [Peridex] 0.12 % mouthwash 15 ml buccal BID Qty: 473 0RF No Action cyclobenzaprine 5 mg tablet 5 mg PO TID PRN (Reason: muscle spasm) Qty: 20 0RF albuterol sulfate 90 mcg/actuation HFA aerosol inhaler 1 inh inhalation Q6H PRN (Reason: shortness of breath or wheezing) Qty: 6.7 0RF hydrocodone-acetaminophen 5-325 mg tablet 1 tab PO Q6H PRN (Reason: pain) Qty: 10 0RF diclofenac sodium 75 mg tablet,delayed release (DR/EC) 75 mg PO BID Qty: 20 0RF Discharge Orders: Discharge ED (Routine); Ordered 05/14/24 Ordered By: Maurice Burk Discharge Diet: Usual diet Discharge Activity: Increase activity as tolerated Patient Instructions: Trench Mouth (ED) Activity Restrictions/Additional Instructions: Continue with amoxicillin. Add Flagyl 500 mg 3 times a day to give a broader spectrum of coverage for the infection. Use of lidocaine viscous to help with pain. Take hydrocodone for severe pain. Follow-up with your dentist for continued care and treatment of this disease. Coding Level of Care Code ED Sales Property Manager for Magali Gonzáles
[2024-05-14] MEDS: HYDROcodone-acetaminophen 5-325 mg Tablet 1 TAB PO (14:45)
[2024-05-14] MEDS: metroNIDAZOLE 500 MG Tablet PO (14:46)
[2024-05-14] MEDS: lidocaine 2% viscous 15 mL UDC 5 ML MUCOUS MEM (14:46)
[2024-05-14 15:04] VITALS: BP 154/85; PULSE 82; O2SAT 95
== END 2024-05-14 15:05 | disposition home or self-care (01) ==
PROVIDERS: Emergency Provider Nurse Practitioner Family
DX: A69.1 Other Vincent's infections (principal); Z87.891 Personal history of nicotine dependence
CPT/HCPCS: 99283

== ENCOUNTER 2024-07-02 14:54 | Emergency (ER) | payer SELFPAY ==
--- NOTE | 2024-07-02 14:56 | XRR_ITS ---
PROCEDURE INFORMATION: Exam: XR Right Hip Exam date and time: 07/02/2024 3:42 PM Age: 48 years old Clinical indication: Injury or trauma; Patient HX: RT hip pain/nerve impingement; No known injury TECHNIQUE: Imaging protocol: Radiologic exam of the right hip. Views: 1 view hip with pelvis when performed. COMPARISON: CT abdomen pelvis w con* [id number] 08/22/2019 10:06 PM FINDINGS: Bones/joints: Unremarkable. No acute fracture. Soft tissues: Unremarkable. XR/XR hip RT 2-3V wo/w pel* [id number] IMPRESSION: No acute findings.
[2024-07-02 15:01] VITALS: BP 156/88; PULSE 95; RESP 18; TEMP 36.7; O2SAT 96; BMI 48.0
--- NOTE | 2024-07-02 15:11 | W.ED.EXTPRO ---
HPI - Extremity Problem General: Chief complaint: Extremity Problem,Nontraumatic Stated complaint: pain in rt hip Time Seen by Provider: 07/02/24 15:06 Source: patient Mode of arrival: ambulatory Limitations: no limitations History of Present Illness: 48-year-old female who states she has been having right hip pain for the last week. She states she was having Thanksgiving last Wednesday had been standing all day and started having right hip pain states is much worse with movement denies any fall denies any injuries she denies any bowel or bladder incontinence denies any fever Associated symptoms: Deny chest pain, fever(s) or rash Related Data Previous Rx's Medication Instructions Recorded cyclobenzaprine 5 mg tablet 5 mg PO TID PRN muscle spasm #20 08/25/23 tabs diclofenac sodium 75 mg 75 mg PO BID #20 tabs 09/06/23 tablet,delayed release hydrocodone 5 mg-acetaminophen 325 1 tab PO Q6H PRN pain #10 tabs 09/06/23 mg tablet albuterol sulfate 90 mcg/actuation 1 inh inhalation Q6H PRN shortness 01/23/24 aerosol inhaler of breath or wheezing #6.7 grams chlorhexidine gluconate 0.12 % 15 ml buccal BID #473 mL 05/14/24 mouthwash (Peridex) hydrocodone 5 mg-acetaminophen 325 1 tab PO Q6H PRN pain #7 tabs 05/14/24 mg tablet lidocaine HCl 2 % mucosal solution 1 applic mucous membrane Q3H PRN 05/14/24 (Lidocaine Viscous) pain #100 mL methocarbamol 750 mg tablet 750 mg PO Q6H PRN spasms #20 tabs 07/02/24 naproxen 500 mg tablet (Naprosyn) 500 mg PO BID PRN pain #20 tabs 07/02/24 Allergies Allergy/AdvReac Type Severity Reaction Status Date / Time No Known Allergies Allergy Verified 05/14/24 14:16 Review of Systems Const: Denies: fever(s), chills, body aches or change in appetite ENMT: Denies: throat pain or dental pain Card: Denies: chest pain Resp: Denies: dyspnea GI: Denies: abdominal pain, nausea, vomiting or diarrhea Musc: Reports: extremity pain; Denies: neck pain or back pain Skin/Breast: Denies: rash Neuro: Denies: headache(s) PFSH ED PFSH: Medical History Aftercare following surgery of the genitourinary system Pelvic pain Abnormal uterine bleeding (AUB) Surgical History H/O tubal ligation 1998 S/P cholecystectomy 2004 Family History Grandmother Breast cancer maternal Uterine cancer maternal Mother Uterine cancer, Onset Age: 45 Stroke Sister Ovarian cancer, Onset Age: 22 Father Anesthesia complication Diabetes Hypertension Other Clotting disorder Denies family history of Hyperlipidemia Bleeding disorder Social History Smoking and tobacco/nicotine status: former use of tobacco/nicotine Quit status (tobacco/nicotine): has quit using Year quit tobacco: 2020 Alcohol intake: current Alcohol intake frequency: holidays/special occasions only Alcohol type: wine Substance/Drug Use: never Physical Exam Const: COMMON NORMALS: no acute distress, patient oriented x3 and healthy appearing HENMT: COMMON NORMALS: normocephalic and atraumatic HEAD & SCALP: normocephalic and atraumatic Neck/C-Spine: COMMON NORMALS: full ROM and supple Chest: COMMONS NORMALS: normal inspection of the chest Resp: COMMON NORMALS: normal respiratory effort Cardio: COMMON NORMALS: regular rate RATE: regular rate GI: COMMON NORMALS: Normal to inspection, nondistended, normoactive bowel sounds present, Soft to palpation, non-tender and no masses PALPATION: Yes Soft to palpation Extremity: COMMON NORMALS: normal to inspection and full ROM NARRATIVE EXTREMITY EXAM: Patient able to stand she does have tenderness right posterior hip no saddle anesthesia Neuro: COMMON NORMALS: patient oriented x3, moves all extremities and no focal motor deficits Psych: COMMON NORMALS: mental status grossly normal, Normal thought process present and cooperative THOUGHT PROCESS: Normal thought process present Skin: COMMON NORMALS: no rashes or lesions noted and no wounds GENERAL SKIN EXAM: no rashes or lesions noted Course Vital Signs: Vital signs: Vital Signs Temperature 98.1 F 07/02/24 15:01 Pulse Rate 95 07/02/24 15:01 Respiratory Rate 18 07/02/24 15:01 Blood Pressure 156/88 07/02/24 15:01 Pulse Oximetry 96 07/02/24 15:01 Oxygen Delivery Me thod Room Air 07/02/24 15:01 MDM - Extremity (Nontraumatic) Medical Decision Making Patient presents here with right hip pain imaging here is negative for likely arthritic pain or muscle pain she is able to bear weight we will get her follow-up with orthopedics she is to return if worsening will prescribe her pain meds. Medical Records I reviewed the patient's medical records. XR interpretation done by ED provider, pending radiology final review ED provider radiology interpretation(s): xr r hip: no acute fx Discharge Plan Discharge Patient Disposition: Home Clinical Impression: Hip pain, right Condition: Stable Prescriptions: New methocarbamol 750 mg tablet 750 mg PO Q6H PRN (Reason: spasms) Qty: 20 0RF naproxen [Naprosyn] 500 mg tablet 500 mg PO BID PRN (Reason: pain) Qty: 20 0RF No Action cyclobenzaprine 5 mg tablet 5 mg PO TID PRN (Reason: muscle spasm) Qty: 20 0RF albuterol sulfate 90 mcg/actuation HFA aerosol inhaler 1 inh inhalation Q6H PRN (Reason: shortness of breath or wheezing) Qty: 6.7 0RF hydrocodone-acetaminophen 5-325 mg tablet 1 tab PO Q6H PRN (Reason: pain) Qty: 7 0RF lidocaine HCl [Lidocaine Viscous] 2 % solution 1 applic mucous membrane Q3H PRN (Reason: pain) Qty: 100 0RF chlorhexidine gluconate [Peridex] 0.12 % mouthwash 15 ml buccal BID Qty: 473 0RF hydrocodone-acetaminophen 5-325 mg tablet 1 tab PO Q6H PRN (Reason: pain) Qty: 10 0RF diclofenac sodium 75 mg tablet,delayed release (DR/EC) 75 mg PO BID Qty: 20 0RF Discharge Orders: Discharge ED (Routine); Ordered 07/02/24 Ordered By: Parker Norris Referrals: Annie Schmitt MD [Physician] - 4-7 days Discharge Diet: Advance as tolerated Discharge Activity: Resume usual activity Patient Instructions: Hip Pain (ED) Stand Alone Forms: Work/School Release Coding Level of Care Code ED Entrance Guard for Chg Eliecer
[2024-07-02] MEDS: dexamethasone 10 mg/mL INJ IM (15:56)
[2024-07-02] MEDS: methocarbamol 750 mg Tablet 1500 MG PO (15:56)
[2024-07-02] MEDS: ketorolac 30 mg/mL INJ IM (15:56)
[2024-07-02] MEDS: HYDROcodone-acetaminophen 5-325 mg Tablet 1 TAB PO (15:56)
[2024-07-02 16:10] VITALS: BP 148/76; PULSE 79; O2SAT 98
--- NOTE | 2024-07-03 08:16 | DCPLANNER ---
messaged ortho for er f/u
== END 2024-07-02 16:11 | disposition home or self-care (01) ==
PROVIDERS: Emergency Provider Emergency Medicine
DX: M25.551 Pain in right hip (principal); Z87.891 Personal history of nicotine dependence
CPT/HCPCS: 73502; 96372; 99284; J1100; J1885

== ENCOUNTER → 2024-07-31 09:46 | Outpatient (BNVA) | payer SELFPAY | PROVIDERS: Visit Provider Specialist | DX: M25.551 Pain in right hip (principal); M70.61 Trochanteric bursitis, right hip; E66.01 Morbid (severe) obesity due to excess calories; Z68.42 Body mass index [BMI] 45.0-49.9, adult; M54.31 Sciatica, right side | CPT/HCPCS: 73502 ==

== ENCOUNTER 2024-09-14 09:36 | Emergency (ER) | payer SELFPAY ==
[2024-09-14] VITALS (7 sets, daily range): BP systolic 151–179; BP diastolic 94–112; PULSE 81–89; RESP 18; TEMP 36.7; O2SAT 97–99; BMI 46.3
--- NOTE | 2024-09-14 09:50 | CT_ITS ---
WS: [id number] CT HEAD NONCONTRAST HISTORY: vertigo, HTN TECHNIQUE: Contiguous axial imaging performed through the brain. Bone and soft tissue windows. Sagittal and coronal reformats reviewed. All CT scans at [facility] use at least one of these dose optimization techniques: automated exposure control; mA and/or kV adjustment per patient size (includes targeted exams where dose is matched to clinical indication); or iterative reconstruction. DLP: 1095.98 mGy.cm COMPARISON: None available. No acute intracranial hemorrhage, midline shift or mass effect. No atrophy or prior infarcts or herniation. Ventricles: Normal size with no hydrocephalus. Paranasal sinuses: As visualized are clear. Mastoid air cells: Well pneumatized. Calvarium and scalp: Skull is intact with no soft tissue edema or swelling. CT/CT head wo con* [id number] IMPRESSION: Negative head CT.
--- NOTE | 2024-09-14 09:54 | ED_ITS ---
HPI - Dizziness 2 General: Chief Complaint: Dizziness Stated Complaint: dizziness Time Seen by Provider: 09/14/24 09:46 History of Present Illness: HPI Narrative: This is a 48-year-old female with a history of obesity who presents emergency room with high blood pressure and vertigo symptoms. Says this started yesterday and has continued to worsen. She has worsening symptoms when she looks to the left. She says she feels like she is spinning and has some balance issues. She has some nausea. No vomiting. No altered mental status. No focal motor deficits. No abdominal pain. No chest pain. No shortness of breath. No fevers. Related Data Previous Rx's ?Medication ?Instructions ?Recorded lisinopril 20 mg tablet 20 mg PO DAILY #30 tabs 08/27 meclizine 25 mg tablet 25 mg PO QID PRN dizziness # 20 tabs 09/14/24 metformin 500 mg tablet 500 mg PO BID #60 tabs 09/14 Allergies Allergy/AdvReac Type Severity Reaction Status Date / Time No Known Allergies Allergy Verified 07/31/24 09:55 Review of Systems 2 Narrative: Constitutional symptoms: Negative except as documented in HPI. Skin symptoms: Negative except as documented in HPI. Eye symptoms: Negative except as documented in HPI. ENMT symptoms: Negative except as documented in HPI. Respiratory symptoms: Negative except as documented in HPI. Cardiovascular symptoms: Negative except as documented in HPI. Gastrointestinal symptoms: Negative except as documented in HPI. Genitourinary symptoms: Negative except as documented in HPI. Musculoskeletal symptoms: Negative except as documented in HPI. Neurologic symptoms: Negative except as documented in HPI. Psychiatric symptoms: Negative except as documented in HPI. Endocrine symptoms: Negative except as documented in HPI. PFSH ED 2 PFSH: Medical History Aftercare following surgery of the genitourinary system Pelvic pain Abnormal uterine bleeding (AUB) Surgical History H/O tubal ligation 1998 S/P cholecystectomy 2003 Family History Grandmother Breast cancer maternal Uterine cancer maternal Mother Uterine cancer, Onset Age: 45 Stroke Sister Ovarian cancer, Onset Age: 22 Father Anesthesia complication Diabetes Hypertension Other Clotting disorder Denies family history of Hyperlipidemia Bleeding disorder Social History Smoking and tobacco/nicotine status: former use of tobacco/nicotine Quit status (tobacco/nicotine): has quit using Year quit tobacco: 2020 Alcohol intake: current Alcohol intake frequency: holidays/special occasions only Alcohol type: wine Substance/Drug Use: never Physical Exam 2 Narrative: EXAM NARRATIVE: General: Alert, no acute distress. Skin: Warm, dry. Head: Normocephalic, atraumatic. Neck: Supple, trachea midline. Eye: Extraocular movements are intact. Ears, nose, mouth and throat: mucosa moist. Cardiovascular: Regular, Normal peripheral perfusion. Respiratory: Lungs are clear to auscultation, respirations are non-labored, breath sounds are equal, Symmetrical chest wall expansion. Gastrointestinal: Soft, Nontender, Non distended Musculoskeletal: Normal ROM, no deformity. Neurological: Alert and oriented, No focal neurological deficit observed. Worsening vertigo symptoms when she looks to the left but no obvious nystagmus. Psychiatric: Cooperative, appropriate mood & affect. Course 2 Vital Signs: Vital signs: Vital Signs Temperature 98.1 F 09/14/24 09:42 Pulse Rate 89 09/14/24 09:42 Respiratory Rate 18 09/14/24 09:42 Blood Pressure 169/103 09/14/24 11:30 Pulse Oximetry 99 09/14/24 09:42 Oxygen Delivery Me thod Room Air 09/14/24 09:42 MDM - Dizziness Medical Decision Making Medical decision making: Differential diagnosis including but not limited to and based on the above HPI, review of systems and physical exam: for patient with complaint of dizziness: stroke, hypotension, hypertension, infection, vertigo, orthostasis Orders placed to evaluate differential diagnosis based on the above differential, HPI and physical exam CT head: No acute intracranial process. no intracranial hemorrhage, no evidence of infarct. no evidence of acute fracture.This was reviewed and interpreted by myself the ER physician. Lab Review: Laboratory results were reviewed and interpreted by myself the emergency room physician. No leukocytosis. No anemia. No renal failure. Glucose is elevated at 369. An A1c was added. This was also elevated at 10.5. Patient did not know she has diabetes. Flu and COVID are negative. I reviewed the patient's medical record. Reexamination: No chest pain. No altered mental status. Dizziness improved with meclizine. We discussed importance of follow-up for diabetes. We also discussed that I will initiate her on medications for blood pressure and diabetes with a low-dose lisinopril and low-dose metformin with 1 refill because she does not have a primary yet but she says she is going to get follow-up very soon. No increased work of breathing. Her blood pressures remain fairly elevated while she is been here. Assessment and plan: Vertigo Hypertension New onset diabetes mellitus Hyperglycemia Dehydration ? Normal saline bolus with no improvement in sugars. I did give a small dose of insulin here. Initiating metformin therapy and lisinopril. - Discharged home - Discussed plan with patient. Answered any questions. - Evaluation and treatment of this problem were appropriate in the emergency setting. Lab Data 09/14/24 10:03 09/14/24 10:[address] 09/14/24 09:50 IMPRESSION: Negative head CT. Laboratory Results WBC 7.47 10^3/uL (3.29-11.43) 09/14/24 10:03 RBC 5.16 10^6/uL (3.85-5.65) 09/14/24 10:03 Hgb 14.00 g/dL (11.27-16.99) 09/14/24 10:03 Hct 41.9 % (36-47) 09/14/24 10:03 MCV 81.2 fl (85-98) L 09/14/24 10:03 MCH 27.1 pg (27-33) 09/14/24 10:03 MCHC 33.4 g/dL (30-55) 09/14/24 10:03 RDW 12.9 % (12.1-15.1) 09/14/24 10:03 Plt Count 204 10^3/cmm (157-399) 09/14/24 10:03 MPV 10.8 fL (7.4-10.4) H 09/14/24 10:03 Neut % (Auto) 65.4 % 09/14/24 10:03 Lymph % (Auto) 23.4 % 09/14/24 10:03 Wharton % (Auto) 5.5 % 09/14/24 10:03 Eos % (Auto) 5.1 % 09/14/24 10:03 Baso % (Auto) 0.3 % 09/14/24 10:03 Neut # (Auto) 4.89 10^3/uL (1.8-7.7) 09/14/24 10:03 Lymph # (Auto) 1.8 10^3/uL (0.8-4.8) 09/14/24 10:03 Wharton # (Auto) 0.4 10^3/uL (0.2-0.9) 09/14/24 10:03 Eos # (Auto) 0.4 10^3/uL (0.0-0.8) 09/14/24 10:03 Baso # (Auto) 0.0 10^3/uL (0.0-0.1) 09/14/24 10:03 Nucleated RBC % (auto) 0 % 09/14/24 10:03 Nucleated RBCs # 0.0 /100WBC 09/14/24 10:03 Sodium 134 mmol/L (136-145) L 09/14/24 10:03 Potassium 3.8 mmol/L (3.5-5.1) 09/14/24 10:03 Chloride 95 mmol/L (98-107) L 09/14/24 10:03 Carbon Dioxide 23 mmol/L (22-29) 09/14/24 10:03 Anion Gap 19.8 (5-19) H 09/14/24 10:03 BUN 4 mg/dL (6-20) L 09/14/24 10:03 Creatinine 0.5 mg/dL (0.5-0.9) 09/14/24 10:03 GFR Calculation 132.8 mL/min (90-130) H 09/14/24 10:03 Glucose 369 mg/dL (65-115) H 09/14/24 10:03 Estimat Average Glucose 263 09/14/24 10:03 Hemoglobin A1c 10.8 % (4.0-6.0) H 09/14/24 10:03 Calculated Osmolality 290 mOsm/kg (285-295) 09/14/24 10:03 Calcium 8.9 mg/dL (8.5-10.5) 09/14/24 10:03 Total Bilirubin 0.4 mg/dL (0.15-1.2) 09/14/24 10:03 AST 31 U/L (0-32) 02/20/25 10:03 ALT 50 U/L (0-33) H 09/14/24 10:03 Alkaline Phosphatase 159 U/L (35-105) H 09/14/24 10:03 Troponin T Baseline 8 ng/L (0-10) 09/14/24 10:03 Troponin T 120 Minute 6.00 ng/L (0-10) 09/14/24 12:15 Delta Troponin T -2.00 ABS# (0-10) L 09/14/24 12:15 Total Protein 6.4 g/dL (6.6-8.7) L 09/14/24 10:03 Albumin 4.0 g/dL (3.5-5.2) 09/14/24 10:03 Globulin 2.4 g/dL (1.3-4.6) 09/14/24 10:03 Urine Color Yellow (Yellow) 09/14/24 11:30 Urine Appearance Clear (CLEAR) 09/14/24 11:30 Urine pH 5.5 (5-7) 09/14/24 11:30 Ur Specific Rittman 1.045 (1.005-1.030) H 09/14/24 11:30 Urine Protein 1+ (Negative) A 09/14/24 11:30 Urine Glucose (UA) 3+ (Normal) H 09/14/24 11:30 Urine Ketones Trace (Negative) 09/14/24 11:30 Urine Blood Negative (Negative) 09/14/24 11:30 Urine Nitrate Negative (Negative) 09/14/24 11:30 Urine Bilirubin Negative (Negative) 09/14/24 11:30 Urine Urobilinogen 1.0 mg/dL (Negative) 09/14/24 11:30 Ur Leukocyte Esterase Negative (Negative) 09/14/24 11:30 Urine RBC 0-4 /hpf (0-2) H 09/14/24 11:30 Urine WBC 0-4 /hpf (0-5) H 09/14/24 11:30 Ur Squamous Epith Cells 0-4 /hpf (0-5) H 09/14/24 11:30 Amorphous Sediment Not Reportable 09/14/24 11:30 Urine Bacteria 1+ /hpf (NONE) H 09/14/24 11:30 Urine Mucus None /hpf 09/14/24 11:30 Urine Yeast 1+ /hpf H 09/14/24 11:30 Influenza A (PCR) Negative (Negative) 09/14/24 10:07 Influenza Type B (PCR) Negative (Negative) 09/14/24 10:07 RSV (PCR) Negative (Negative) 09/14/24 10:07 SARS-CoV-2 (PCR) Negative (Negative) 09/14/24 10:07 All radiology interpretation(s) finalized by discharge Discharge Plan Discharge Patient Disposition: Home Clinical Impression: Vertigo, New onset type 2 diabetes mellitus, Hypertension Condition: Stable Prescriptions: New lisinopril 20 mg tablet 20 mg PO DAILY Qty: 30 1RF metformin 500 mg tablet 500 mg PO BID Qty: 60 1RF meclizine 25 mg tablet 25 mg PO QID PRN (Reason: dizziness) Qty: 20 0RF Discharge Orders: Discharge ED (Routine); Ordered 09/14/24 Ordered By: Rima Ordonez Discharge Diet: Diabetic Discharge Activity: Increase activity as tolerated Patient Instructions: Benign Paroxysmal Positional Vertigo (ED), Hypertension (ED), Type 2 Diabetes Management for Adults (ED), Opioid Safety, Pain Management Activity Restrictions/Additional Instructions: Thank you for choosing [facility] for your healthcare needs today. Please realize this is an emergency room and that we are providing you with a medical screening exam and this may not be complete and all inclusive of all the testing and or work up that you may need to determine your ailment or severity of your illness. You have been screened and evaluated and felt safe for discharge. Health conditions do change or evolve sometimes and as such it is important that you follow up with your Primary Doctor to be re checked, 3-5 days is a general good time frame for follow up. You are always welcome to return to the ED for re assessment if your symptoms are worsening or you have new concerns Print Language: Nepali Coding Level of Care Code ED Log Handling Equipment Operator for Magali Gonzáles
--- NOTE | 2024-09-14 09:57 | ECG_ITS ---
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 Measurements Intervals [place] Rate: 83 P: 64 RI: 165 QRS: 12 QRSD: 90 T: 27 QT: 364 QTc: 430 Interpretive Statements SINUS RHYTHM Compared to ECG 04/24/2018 15:20:22 No significant changes Electronically Signed On 09-14-2024 17:50:57 NEGATIVE NOTCHER by Carlos Thurman M.D. [email or web address]
[2024-09-14 10:12] LABS: Basophils % 0.3 %; Eosinophils # 0.4 10^3/uL (0.0-0.8); Eosinophils % 5.1 %; Hematocrit 41.9 % (36-47); Lymphocytes # 1.8 10^3/uL (0.8-4.8); Lymphocytes % 23.4 %; Mean Corpuscular HGB Conc 33.4 g/dL (30-55); Mean Corpuscular Hemoglobin 27.1 pg (27-33); Mean Corpuscular Volume 81.2 fl (85-98); Mean Platelet Volume 10.8 fL (7.4-10.4); Monocytes # 0.4 10^3/uL (0.2-0.9); Monocytes % 5.5 %; Neutrophils # 4.89 10^3/uL (1.8-7.7); Neutrophils % 65.4 %; Nucleated Red Blood Cells % 0 %; Platelet Count 204 10^3/cmm (157-399); Red Blood Count 5.16 10^6/uL (3.85-5.65); Red Cell Distribution Width 12.9 % (12.1-15.1); White Blood Count 7.47 10^3/uL (3.29-11.43)
[2024-09-14 10:29] LABS: Alanine Aminotransferase 50 U/L (0-33); Alkaline Phosphatase 159 U/L (35-105); Anion Gap 19.8 (5-19); Aspartate Amino Transferase 31 U/L (0-32); Blood Urea Nitrogen 4 mg/dL (6-20); Calcium 8.9 mg/dL (8.5-10.5); Carbon Dioxide 23 mmol/L (22-29); Chloride 95 mmol/L (98-107); Creatinine Clr Calc Pharmacy 181.5683; Globulin 2.4 g/dL (1.3-4.6); Glomerular Filtration Rate 132.8 mL/min (90-130); Glucose 369 mg/dL (65-115); Osmolality Calculated 290 mOsm/kg (285-295); Potassium 3.8 mmol/L (3.5-5.1); Sodium 134 mmol/L (136-145); Total Bilirubin 0.4 mg/dL (0.15-1.2); Total Protein 6.4 g/dL (6.6-8.7); Troponin(5th) Baseline 8 ng/L (0-10)
[2024-09-14] MEDS: meclizine 25 mg tablet 50 MG PO (10:33)
[2024-09-14 10:57] LABS: Estmated Average Glucose 263; Hemoglobin A1C 10.8 % (4.0-6.0)
[2024-09-14 11:15] LABS: Influenza A NEGATIVE (Negative); Influenza B NEGATIVE (Negative); Respiratory Syncytial Virus Ce NEGATIVE (Negative); SARS-CoV-2 PCR NEGATIVE (Negative)
[2024-09-14] MEDS: sodium chloride 0.9% 1,000 ML 999 ML IV (11:19)
[2024-09-14 11:48] LABS: Bilirubin Urine Negative (Negative); Blood Urine Negative (Negative); Glucose Urine UA 3+ (Normal); Ketones Urine Trace (Negative); Leukocyte Esterase Urine Negative (Negative); Nitrate Urine Negative (Negative); Protein Urine 1+ (Negative); Urine Appearance Clear (CLEAR); Urine Color Yellow (Yellow); pH Urine 5.5 (5-7)
--- NOTE | 2024-09-14 11:50 | ECG_ITS ---
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
[2024-09-14 12:25] LABS: Specific Gravity, Urine 1.045 (1.005-1.030); UA Manual Slide Review YES; UA Slide Review UA Slide Review Perf
[2024-09-14 12:27] LABS: Add Urine Culture? No; Bacteria Urine 1+ /hpf; RBC Urine 0-4 /hpf (0-2); Squamous Epithelial Cell Urine 0-4 /hpf (0-5); WBC Urine 0-4 /hpf (0-5)
[2024-09-14 13:23] LABS: Glucose Point of Care 381 mg/dL (70-110)
[2024-09-14] MEDS: insulin regular-human 100 units/1 mL 10 UNIT IVP (13:36)
== END 2024-09-14 13:40 | disposition home or self-care (01) ==
PROVIDERS: Emergency Provider Emergency Medicine
DX: R42 Dizziness and giddiness (principal); E11.9 Type 2 diabetes mellitus without complications; I10 Essential (primary) hypertension; Z11.52 Encounter for screening for COVID-19; Z79.84 Long term (current) use of oral hypoglycemic drugs; Z87.891 Personal history of nicotine dependence
CPT/HCPCS: 36415; 36416; 70450; 80053; 81001; 82962; 83036; 84484; 85025; 87637; 93005; 96361; 96374; 99285; J1815; J7030; J8597

== ENCOUNTER 2024-11-14 10:19 | Outpatient (CLI) | payer OTHER, SELFPAY ==
--- NOTE | 2024-11-14 10:24 | MM_ITS ---
WS: [id number] DIAGNOSTIC BILATERAL DIGITAL BREAST TOMOSYNTHESIS MAMMOGRAPHY WITH CAD RIGHT breast ultrasound, limited HISTORY: RIGHT palpable mass in the axilla. COMPARISON: 03/26/2015, 03/14/2015 TECHNIQUE: Bilateral craniocaudad, mediolateral oblique, and mediolateral views are submitted with tomosynthesis and SM. Spot compression RIGHT MLO. Computer aided detection utilized. Breast composition: There are scattered areas of fibroglandular density. Triangular marker is noted within the RIGHT axilla at the area of the palpable site. Very deep to the marker is a benign-appearing lymph node. There is no suspicious mass or distortion. Ovoid mass with biopsy clip in the anterior lateral LEFT breast. There are no suspicious masses or grouping of calcif ications within either breast. RIGHT breast ultrasound, limited. Ultrasound directed to the RIGHT axilla in the area of pain and nodule. No abnormality is identified by ultrasound. MM/MM diag BI tomosynthesis [id number] IMPRESSION: BI-RADS: 2 - Benign. FOLLOW UP: 1 Year Follow-up
== END 2024-11-14 10:20 | disposition home or self-care (01) ==
PROVIDERS: Visit Provider Advanced Practice Midwife
DX: R59.0 Localized enlarged lymph nodes (principal); R92.323 Mammographic fibroglandular density, bilateral breasts
CPT/HCPCS: 76642; 77062; G0279

== ENCOUNTER 2024-11-22 18:34 | Emergency (ER) | payer MEDICAID, SELFPAY ==
--- NOTE | 2024-11-22 18:37 | XRR_ITS ---
PROCEDURE INFORMATION: Exam: XR Right Knee Exam date and time: 11/22/2024 7:00 PM Age: 49 years old Clinical indication: Pain; Knee; Right; Additional info: Knee pain TECHNIQUE: Imaging protocol: Radiologic exam of the right knee. Views: 3 views. COMPARISON: CR XR knee RT 3V* [id number] 11/01/2021 7:13 PM FINDINGS: Bones/joints: Normal. Soft tissues: Normal. XR/XR knee RT 3V* [id number] IMPRESSION: No acute findings.
[2024-11-22 18:38] VITALS: BP 153/91; PULSE 89; TEMP 36.6; O2SAT 98; BMI 46.3
--- NOTE | 2024-11-22 19:06 | W.ED.EXTPRO ---
HPI - Extremity Problem General: Chief complaint: Extremity Problem,Nontraumatic Stated complaint: Rt Knee Pain Time Seen by Provider: 11/22/24 18:45 Source: patient Mode of arrival: ambulatory Limitations: no limitations History of Present Illness: Patient is a 49-year-old female who presents the emergency department planing of right knee pain beginning last week. Atraumatic, though she does note that she is on her feet a lot with her occupation. No history of previous surgeries or injuries to the right knee. States is primarily to the knee joint itself, noting that it feels like it is behind the kneecap and it can feel radiating towards the popliteal space. No swelling or skin color changes or temperature changes noted to the right lower extremity. Does not report taking any medications. No other symptoms noted at this time. MD Complaint: joint pain Onset (ago): week(s) Pain Consistency: constant Location: right and lower extremity (Knee) Radiation: none Exacerbating factors: weight bearing Associated symptoms: Deny chest pain, fever(s) or rash Related Data Previous Rx's ?Medication ?Instructions ?Recorded lisinopril 20 mg tablet 20 mg PO DAILY #30 tabs 09/14/24 meclizine 25 mg tablet 25 mg PO QID PRN dizziness #20 tabs 09/14/24 metformin 500 mg tablet 500 mg PO BID #60 tabs 09/14/24 Allergies Allergy/AdvReac Type Severity Reaction Status Date / Time No Known Allergies Allergy Verified 11/22/24 18:43 Review of Systems General: Reports: 10 or more systems reviewed and unremarkable except in HPI and below Const: Denies: fever(s) or chills Card: Denies: chest pain Resp: Denies: dyspnea or productive cough GI: Denies: abdominal pain, nausea, vomiting or diarrhea : Denies: flank pain Musc: Reports: joint pain (Right knee) and limited range of motion (Right knee); Denies: neck pain, back pain, extremity pain, extremity swelling, joint swelling, joint redness, joint warmth or muscle weakness Skin/Breast: Denies: rash Neuro: Denies: headache(s), numbness in extremities or weakness in extremities PFS ED PFSH: Medical History Aftercare following surgery of the genitourinary system Pelvic pain Abnormal uterine bleeding (AUB) Surgical History H/O tubal ligation 1998 S/P cholecystectomy 2003 Family History Grandmother Breast cancer maternal Uterine cancer maternal Mother Uterine cancer, Onset Age: 45 Stroke Sister Ovarian cancer, Onset Age: 22 Father Anesthesia complication Diabetes Hypertension Other Clotting disorder Denies family history of Hyperlipidemia Bleeding disorder Social History Smoking and tobacco/nicotine status: former use of tobacco/nicotine Quit status (tobacco/nicotine): has quit using Year quit tobacco: 2020 Alcohol intake: current Alcohol intake frequency: holidays/special occasions only Alcohol type: wine Substance/Drug Use: never Physical Exam Const: COMMON NORMALS: no acute distress, patient oriented x3, no limitations, healthy appearing, alert and well nourished HENMT: COMMON NORMALS: normocephalic and atraumatic HEAD & SCALP: normocephalic and atraumatic Neck/C-Spine: COMMON NORMALS: full ROM, supple and no meningeal signs Resp: COMMON NORMALS: normal respiratory effort, No use of accessory muscles and clear to auscultation bilaterally AUSCULTATION: clear to auscultation bilaterally Cardio: COMMON NORMALS: regular rate and regular rhythm RATE: regular rate RHYTHM: regular rhythm Extremity: COMMON NORMALS: full ROM, capillary refill normal, no joint enlargement and no clubbing, cyanosis or edema NARRATIVE EXTREMITY EXAM: No swelling of the right knee joint, no significant reproducible tenderness to palpation. Pain with active and passive range of motion at the right knee. Difficult to appreciate a positive Jake's test secondary to body habitus. However there is negative anterior/posterior drawer testing, negative varus/valgus stress testing. No appreciable joint effusion at this time. No calf tenderness or swelling. Distal pulses palpable. Neuro: COMMON NORMALS: patient oriented x3, moves all extremities, no focal motor deficits and no sensory deficits noted SENSORIUM/ORIENTATION: Yes alert MENINGEAL SIGNS: Yes no meningeal signs Skin: COMMON NORMALS: no rashes or lesions noted GENERAL SKIN EXAM: no rashes or lesions noted Course Vital Signs: Vital signs: Vital Signs Temperature 97.9 F 11/22/24 18:38 Pulse Rate 79 11/22/24 19:45 Blood Pressure 165/96 11/22/24 19:45 Pulse Oximetry 98 11/22/24 19:45 Oxygen Delivery Me thod Room Air 11/22/24 18:38 MDM - Extremity (Nontraumatic) Medical Decision Making Patient presents with right knee pain for the past week. No history of surgery, no reported trauma or known inciting event to why pain began. No radiation of the pain, noted it was felt it within the knee joint with radiation to posterior knee. Negative special knee testing and exam. Treated with medications here in the ED and she notes improvement. Her x-rays nondiagnostic. I suspect meniscal injury and will have her see orthopedics for further eval, likely MRI. Encouraged her to treat conservatively at home with elevation, and compression. Discharge at this time. In stable condition. Lab Data Radiology Impressions Knee X-Ray 11/22/24 18:37 IMPRESSION: No acute findings. All radiology interpretation(s) finalized by discharge Discharge Plan Discharge Patient Disposition: Home Clinical Impression: Right knee sprain Qualifiers: Encounter type: initial encounter Involved ligament of knee: unspecified ligament Qualified Code(s): S83.91XA - Sprain of unspecified site of right knee, initial encounter Condition: Stable Prescriptions: No Action lisinopril 20 mg tablet 20 mg PO DAILY Qty: 30 1RF metformin 500 mg tablet 500 mg PO BID Qty: 60 1RF meclizine 25 mg tablet 25 mg PO QID PRN (Reason: dizziness) Qty: 20 0RF Discharge Orders: Discharge ED (Routine); Ordered 11/22/24 Ordered By: Aries Escobedo Referrals: Kinza Wallace FNP [Primary Care Provider, Nurse Practitioner] Patient Instructions: Knee Sprain (ED) Activity Restrictions/Additional Instructions: Follow-up with orthopedics. Elevate the extremity, compression. Take ibuprofen and Tylenol for pain. Weightbearing as tolerated, range of motion exercises. Please return with any new or worsening. 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
[2024-11-22] MEDS: dexamethasone 10 mg/mL INJ IM (19:19)
[2024-11-22] MEDS: ketorolac 60 mg/2 mL INJ IM (19:19)
[2024-11-22] MEDS: HYDROcodone-acetaminophen 5-325 mg Tablet 1 TAB PO (19:19)
[2024-11-22 19:45] VITALS: BP 165/96; PULSE 79; O2SAT 98
--- NOTE | 2024-11-23 07:18 | DCPLANNER ---
messaged ortho for er f/u
== END 2024-11-22 19:47 | disposition home or self-care (01) ==
PROVIDERS: Emergency Provider Physician Assistant; PCP Nurse Practitioner Family
DX: S83.91XA Sprain of unspecified site of right knee, initial encounter (principal); Z79.84 Long term (current) use of oral hypoglycemic drugs; Z87.891 Personal history of nicotine dependence; X58.XXXA Exposure to other specified factors, initial encounter
CPT/HCPCS: 73562; 96372; 99284; J1100; J1885; J9999

== ENCOUNTER → 2024-12-05 13:10 | Outpatient (BNVA) | payer MEDICAID, SELFPAY | PROVIDERS: PCP Nurse Practitioner Family; Visit Provider Physician Assistant | DX: M25.561 Pain in right knee (principal); M25.569 Pain in unspecified knee; M23.306 Other meniscus derangements, unspecified meniscus, right knee | CPT/HCPCS: 73560; 73565 ==

== ENCOUNTER → 2025-02-07 08:04 | Outpatient (BNVA) | payer MEDICAID, SELFPAY | PROVIDERS: PCP Nurse Practitioner Family; Visit Provider Physician Assistant | DX: M54.50 Low back pain, unspecified (principal); M70.72 Other bursitis of hip, left hip; M16.12 Unilateral primary osteoarthritis, left hip | CPT/HCPCS: 73502 ==

== ENCOUNTER → 2025-02-13 14:54 | Outpatient (BNVA) | payer MEDICAID, SELFPAY | PROVIDERS: PCP Nurse Practitioner Family; Visit Provider Orthopaedic Surgery | DX: M54.50 Low back pain, unspecified (principal); M54.2 Cervicalgia | CPT/HCPCS: 72050; 72110 ==

== ENCOUNTER 2025-02-28 21:20 | Emergency (ER) | payer MEDICAID, SELFPAY ==
[2025-02-28 21:30] VITALS: BP 114/80; PULSE 95; RESP 18; TEMP 36.6; O2SAT 100; BMI 43.4
--- NOTE | 2025-02-28 21:36 | W.ED.CHESTPA ---
Documented by User: Lucas Bustos MD 03/03/25 04:16 HPI - Chest Pain General: Chief Complaint: Chest Pain Stated Complaint: Chest pain Time Seen by Provider: 02/28/25 21:36 Source: patient Related Data Previous Rx's ?Medication ?Instructions ?Recorded lisinopril 20 mg tablet 20 mg PO DAILY #30 tabs 09/14/24 meclizine 25 mg tablet 25 mg PO QID PRN dizziness #20 tabs 09/14/24 metformin 500 mg tablet 500 mg PO BID #60 tabs 09/14/24 methocarbamol 750 mg tablet 750 mg PO TID 2 weeks #42 tabs 02/07/25 prednisone 20 mg tablet 20 mg PO DAILY #15 tabs 02/07/25 methocarbamol 500 mg tablet 500 mg PO Q8H PRN muscle spasm #30 03/01/25 tabs Allergies Allergy/AdvReac Type Severity Reaction Status Date / Time No Known Allergies Allergy Verified 02/28/25 21:34 [facility] ED PFSH: Medical History (Updated 03/01/25 @ 00:10 by CATHY Mike) Aftercare following surgery of the genitourinary system Pelvic pain Abnormal uterine bleeding (AUB) Surgical History H/O tubal ligation 1998 S/P cholecystectomy 2003 Family History Grandmother Breast cancer maternal Uterine cancer maternal Mother Uterine cancer, Onset Age: 45 Stroke Sister Ovarian cancer, Onset Age: 22 Father Anesthesia complication Diabetes Hypertension Other Clotting disorder Denies family history of Hyperlipidemia Bleeding disorder Social History Smoking and tobacco/nicotine status: former use of tobacco/nicotine Quit status (tobacco/nicotine): has quit using Year quit tobacco: 2019 Alcohol intake: current Alcohol intake frequency: holidays/special occasions only Alcohol type: wine Substance/Drug Use: never Course Vital Signs: Vital signs: Vital Signs Temperature 97.9 F 02/28/25 21:30 Pulse Rate 92 03/01/25 01:04 Respiratory Rate 16 03/01/25 01:04 Blood Pressure 106/55 03/01/25 01:04 Pulse Oximetry 97 03/01/25 01:04 Oxygen Delivery Me thod Room Air 03/01/25 00:00 MDM - Chest Pain Medical Decision Making Patient is a pleasant 49-year-old female with left-sided chest discomfort that radiated to her left arm. She felt as if she was having reflux symptoms. GI cocktail did not seem to make a difference. Cardiac is being ruled out currently. EKG shows no acute ST segment elevation. Wells PE score is 0. She is not having any palpitations. Will check second troponin, and essentially patient will be ruled out. Suspect association of pleurisy with recent smoking history. Patient improved, remained stable and will be discharged. Medical Records I reviewed the patient's medical records. Lab Data I reviewed the patient's lab results. 02/28/25 22:08 02/28/25 22:08 Radiology Impressions Chest X-Ray 02/28/25 21:39 IMPRESSION: No acute findings. Laboratory Results WBC 11.83 10^3/uL (3.29-11.43) H 02/28/25 22:08 RBC 4.55 10^6/uL (3.85-5.65) 02/28/25 22:08 Hgb 12.30 g/dL (11.27-16.99) 02/28/25 22:08 Hct 37.5 % (36-47) 02/28/25 22:08 MCV 82.4 fl (85-98) L 02/28/25 22:08 MCH 27.0 pg (27-33) 02/28/25 22:08 MCHC 32.8 g/dL (30-55) 02/28/25 22:08 RDW 13.8 % (12.1-15.1) 02/28/25 22:08 Plt Count 284 10^3/cmm (157-399) 02/28/25 22:08 MPV 9.6 fL (7.4-10.4) 02/28/25 22:08 Neut % (Auto) 72.2 % 02/28/25 22:08 Lymph % (Auto) 20.5 % 02/28/25 22:08 Morris % (Auto) 4.4 % 02/28/25 22:08 Eos % (Auto) 2.4 % 02/28/25 22:08 Baso % (Auto) 0.2 % 02/28/25 22:08 Neut # (Auto) 8.55 10^3/uL (1.8-7.7) H 02/28/25 22:08 Lymph # (Auto) 2.4 10^3/uL (0.8-4.8) 02/28/25 22:08 Morris # (Auto) 0.5 10^3/uL (0.2-0.9) 02/28/25 22:08 Eos # (Auto) 0.3 10^3/uL (0.0-0.8) 02/28/25 22:08 Baso # (Auto) 0.0 10^3/uL (0.0-0.1) 02/28/25 22:08 Nucleated RBC % (auto) 0 % 02/28/25 22:08 Nucleated RBCs # 0.0 /100WBC 02/28/25 22:08 Sodium 137 mmol/L (136-145) 02/28/25 22:08 Potassium 3.6 mmol/L (3.5-5.1) 02/28/25 22:08 Chloride 101 mmol/L (98-107) 02/28/25 22:08 Carbon Dioxide 24 mmol/L (22-29) 02/28/25 22:08 Anion Gap 15.6 (5-19) 02/28/25 22:08 BUN 5 mg/dL (6-20) L 02/28/25 22:08 Creatinine 0.6 mg/dL (0.5-0.9) 02/28/25 22:08 GFR Calculation 107.2 mL/min (90-130) 02/28/25 22:08 Glucose 78 mg/dL (65-115) 02/28/25 22:08 Calculated Osmolality 280 mOsm/kg (285-295) L 02/28/25 22:08 Calcium 9.0 mg/dL (8.5-10.5) 02/28/25 22:08 Total Bilirubin 0.7 mg/dL (0.15-1.2) 02/28/25 22:08 AST 10 U/L (0-32) 02/28/25 22:08 ALT 13 U/L (0-33) 02/28/25 22:08 Alkaline Phosphatase 132 U/L (35-105) H 02/28/25 22:08 Troponin T Baseline < 6 ng/L (0-10) 02/28/25 22:08 Troponin T 120 Minute < 6.0 ng/L (0-10) 03/01/25 00:08 Delta Troponin T 0 ABS# (0-10) 03/01/25 00:08 NT-Pro-B Natriuret Pep < 36 pg/mL (0-125) 02/28/25 22:08 Total Protein 6.2 g/dL (6.6-8.7) L 02/28/25 22:08 Albumin 3.9 g/dL (3.5-5.2) 02/28/25 22:08 Globulin 2.3 g/dL (1.3-4.6) 02/28/25 22:08 Lipase 18 U/L (13-60) 02/28/25 22:08 HCG, Qual Negative (Negative) 02/28/25 22:50 Urine Color Terry (Yellow) A 02/28/25 22:50 Urine Appearance Cloudy (CLEAR) A 02/28/25 22:50 Urine pH 5.5 (5-7) 02/28/25 22:50 Ur Specific Wisner 1.020 (1.005-1.030) 02/28/25 22:50 Urine Protein Trace (Negative) A 02/28/25 22:50 Urine Glucose (UA) Negative (Normal) 02/28/25 22:50 Urine Ketones 1+ (Negative) H 02/28/25 22:50 Urine Blood Negative (Negative) 02/28/25 22:50 Urine Nitrate Negative (Negative) 02/28/25 22:50 Urine Bilirubin Negative (Negative) 02/28/25 22:50 Urine Urobilinogen 1.0 mg/dL (Negative) 02/28/25 22:50 Ur Leukocyte Esterase Negative (Negative) 02/28/25 22:50 Urine RBC 0-2 /hpf (0-2) 02/28/25 22:50 Urine WBC 6-10 /hpf (0-5) 02/28/25 22:50 Ur Squamous Epith Cells 11-20 /hpf (0-5) H 02/28/25 22:50 Amorphous Sediment Not Reportable 02/28/25 22:50 Urine Bacteria 2+ /hpf (NONE) H 02/28/25 22:50 Hyaline Casts 0-4 /lpf H 02/28/25 22:50 Discharge Plan Discharge Patient Disposition: Home Clinical Impression: Atypical chest pain Condition: Stable Prescriptions: New methocarbamol 500 mg tablet 500 mg PO Q8H PRN (Reason: muscle spasm) Qty: 30 0RF No Action prednisone 20 mg tablet 20 mg PO DAILY Qty: 15 0RF Rx Instructions: 60mg x 3 days 40mg x 2 days 20mg x 2 days methocarbamol 750 mg tablet 750 mg PO TID 14 Days Qty: 42 1RF lisinopril 20 mg tablet 20 mg PO DAILY Qty: 30 1RF metformin 500 mg tablet 500 mg PO BID Qty: 60 1RF meclizine 25 mg tablet 25 mg PO QID PRN (Reason: dizziness) Qty: 20 0RF Discharge Orders: Discharge ED (Routine); Ordered 03/01/25 Ordered By: Radha Chen Referrals: Kinza Wallace FNP [Primary Care Provider, Nurse Practitioner] Discharge Diet: Usual diet Discharge Activity: Resume usual activity Patient Instructions: Pleurisy (ED), Patient Portal & Brandon Instructions Activity Restrictions/Additional Instructions: You have been ruled out from a ischemic cardiac standpoint acutely?meaning you do not have blockage at this time that is causing heart attack. There are multiple issues that cause pain in your chest. You may need a stress test, or further evaluation by an/sqq 89(v)15 sonar system journeyman. Please follow-up with your primary care physician first. Take a baby aspirin daily. Muscle relaxers have been sent to the pharmacy for pain. Do your deep breathing exercises as well which should help with pleuritic chest pain. Return to ED if you do have further issues with chest discomfort, shortness of breath, nausea and vomiting associated. 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 This started this a.m. There is no association of nausea, vomiting, or diaphoresis, or shortness of breath. Patient states that just the pain. She thought it was reflux, and took another omeprazole. Associated symptoms: Deny abdominal pain, dyspnea, fever(s), nausea, palpitations or vomiting Related Data Previous Rx's ?Medication ?Instructions ?Recorded lisinopril 20 mg tablet 20 mg PO DAILY #30 tabs 09/14/24 meclizine 25 mg tablet 25 mg PO QID PRN dizziness #20 tabs 09/14/24 metformin 500 mg tablet 500 mg PO BID #60 tabs 09/14/24 methocarbamol 750 mg tablet 750 mg PO TID 2 weeks #42 tabs 02/07/25 prednisone 20 mg tablet 20 mg PO DAILY #15 tabs 02/07/25 methocarbamol 500 mg tablet 500 mg PO Q8H PRN muscle spasm #30 03/01/25 tabs Allergies Allergy/AdvReac Type Severity Reaction Status Date / Time No Known Allergies Allergy Verified 02/28/25 21:34 Review of Systems Const: Denies: fever(s), chills or night sweats ENMT: Denies: throat pain Card: Reports: chest pain; Denies: palpitations Resp: Denies: dyspnea or non-productive cough GI: Denies: abdominal pain, nausea or vomiting : Denies: flank pain or difficulty voiding Musc: Denies: neck pain, back pain, extremity pain, joint pain, joint stiffness or limited range of motion Skin/Breast: Denies: rash or pruritus Neuro: Denies: headache(s) or numbness in extremities PFSH ED PFSH: Medical History (Updated 03/01/25 @ 00:10 by CATHY Mike) Aftercare following surgery of the genitourinary system Pelvic pain Abnormal uterine bleeding (AUB) Surgical History H/O tubal ligation 1998 S/P cholecystectomy 2004 Family History Grandmother Breast cancer maternal Uterine cancer maternal Mother Uterine cancer, Onset Age: 45 Stroke Sister Ovarian cancer, Onset Age: 22 Father Anesthesia complication Diabetes Hypertension Other Clotting disorder Denies family history of Hyperlipidemia Bleeding disorder Social History Smoking and tobacco/nicotine status: former use of tobacco/nicotine Quit status (tobacco/nicotine): has quit using Year quit tobacco: 2020 Alcohol intake: current Alcohol intake frequency: holidays/special occasions only Alcohol type: wine Substance/Drug Use: never Physical Exam Const: COMMON NORMALS: no acute distress, average body habitus and patient oriented x3 HENMT: COMMON NORMALS: normocephalic and atraumatic HEAD & SCALP: normocephalic and atraumatic Neck/C-Spine: COMMON NORMALS: full ROM and no lymphadenopathy Lymph: LYMPHATIC: no lymphadenopathy noted Chest: CHEST: Yes Symmetrical chest wall rise and Yes tenderness sternum GI: COMMON NORMALS: Normal to inspection, nondistended, normoactive bowel sounds present, Soft to palpation and non-tender INSPECTION: Yes normal to inspection PALPATION: Yes Soft to palpation : COMMON NORMALS: Yes no CVA tenderness BLADDER/KIDNEY EXAM: Yes no CVA tenderness Back/Pelvis: COMMON NORMALS: no CVA tenderness Extremity: COMMON NORMALS: normal to inspection, full ROM and capillary refill normal Neuro: COMMON NORMALS: patient oriented x3 Psych: COMMON NORMALS: mental status grossly normal, Normal thought process present and cooperative THOUGHT PROCESS: Normal thought process present Course Reevaluation(s): Reevaluation #1: GI cocktail did not seem to help. Will attempt morphine. Aspirin ordered. Vital Signs: Vital signs: Vital Signs Temperature 97.9 F 02/28/25 21:30 Pulse Rate 92 03/01/25 01:04 Respiratory Rate 16 03/01/25 01:04 Blood Pressure 106/55 03/01/25 01:04 Pulse Oximetry 97 03/01/25 01:04 Oxygen Delivery Me thod Room Air 03/01/25 00:00 MDM - Chest Pain Medical Decision Making Patient is a pleasant 49-year-old female with left-sided chest discomfort that radiated to her left arm. She felt as if she was having reflux symptoms. GI cocktail did not seem to make a difference. Cardiac is being ruled out currently. EKG shows no acute ST segment elevation. Wells PE score is 0. She is not having any palpitations. Will check second troponin, and essentially patient will be ruled out. Suspect association of pleurisy with recent smoking history. Lab Data 02/28/25 22:08 02/28/25 22:08 Radiology Impressions Chest X-Ray 02/28/25 21:39 IMPRESSION: No acute findings. Laboratory Results WBC 11.83 10^3/uL (3.29-11.43) H 02/28/25 22:08 RBC 4.55 10^6/uL (3.85-5.65) 02/28/25 22:08 Hgb 12.30 g/dL (11.27-16.99) 02/28/25 22:08 Hct 37.5 % (36-47) 02/28/25 22:08 MCV 82.4 fl (85-98) L 02/28/25 22:08 MCH 27.0 pg (27-33) 02/28/25 22:08 MCHC 32.8 g/dL (30-55) 02/28/25 22:08 RDW 13.8 % (12.1-15.1) 02/28/25 22:08 Plt Count 284 10^3/cmm (157-399) 02/28/25 22:08 MPV 9.6 fL (7.4-10.4) 02/28/25 22:08 Neut % (Auto) 72.2 % 02/28/25 22:08 Lymph % (Auto) 20.5 % 02/28/25 22:08 Morris % (Auto) 4.4 % 02/28/25 22:08 Eos % (Auto) 2.4 % 02/28/25 22:08 Baso % (Auto) 0.2 % 02/28/25 22:08 Neut # (Auto) 8.55 10^3/uL (1.8-7.7) H 02/28/25 22:08 Lymph # (Auto) 2.4 10^3/uL (0.8-4.8) 02/28/25 22:08 Morris # (Auto) 0.5 10^3/uL (0.2-0.9) 02/28/25 22:08 Eos # (Auto) 0.3 10^3/uL (0.0-0.8) 02/28/25 22:08 Baso # (Auto) 0.0 10^3/uL (0.0-0.1) 02/28/25 22:08 Nucleated RBC % (auto) 0 % 02/28/25 22:08 Nucleated RBCs # 0.0 /100WBC 02/28/25 22:08 Sodium 137 mmol/L (136-145) 02/28/25 22:08 Potassium 3.6 mmol/L (3.5-5.1) 02/28/25 22:08 Chloride 101 mmol/L (98-107) 02/28/25 22:08 Carbon Dioxide 24 mmol/L (22-29) 02/28/25 22:08 Anion Gap 15.6 (5-19) 02/28/25 22:08 BUN 5 mg/dL (6-20) L 02/28/25 22:08 Creatinine 0.6 mg/dL (0.5-0.9) 02/28/25 22:08 GFR Calculation 107.2 mL/min (90-130) 02/28/25 22:08 Glucose 78 mg/dL (65-115) 02/28/25 22:08 Calculated Osmolality 280 mOsm/kg (285-295) L 02/28/25 22:08 Calcium 9.0 mg/dL (8.5-10.5) 02/28/25 22:08 Total Bilirubin 0.7 mg/dL (0.15-1.2) 02/28/25 22:08 AST 10 U/L (0-32) 02/28/25 22:08 ALT 13 U/L (0-33) 02/28/25 22:08 Alkaline Phosphatase 132 U/L (35-105) H 02/28/25 22:08 Troponin T Baseline < 6 ng/L (0-10) 02/28/25 22:08 Troponin T 120 Minute < 6.0 ng/L (0-10) 03/01/25 00:08 Delta Troponin T 0 ABS# (0-10) 03/01/25 00:08 NT-Pro-B Natriuret Pep < 36 pg/mL (0-125) 02/28/25 22:08 Total Protein 6.2 g/dL (6.6-8.7) L 02/28/25 22:08 Albumin 3.9 g/dL (3.5-5.2) 02/28/25 22:08 Globulin 2.3 g/dL (1.3-4.6) 02/28/25 22:08 Lipase 18 U/L (13-60) 02/28/25 22:08 HCG, Qual Negative (Negative) 02/28/25 22:50 Urine Color Terry (Yellow) A 02/28/25 22:50 Urine Appearance Cloudy (CLEAR) A 02/28/25 22:50 Urine pH 5.5 (5-7) 02/28/25 22:50 Ur Specific Wisner 1.020 (1.005-1.030) 02/28/25 22:50 Urine Protein Trace (Negative) A 02/28/25 22:50 Urine Glucose (UA) Negative (Normal) 02/28/25 22:50 Urine Ketones 1+ (Negative) H 02/28/25 22:50 Urine Blood Negative (Negative) 02/28/25 22:50 Urine Nitrate Negative (Negative) 02/28/25 22:50 Urine Bilirubin Negative (Negative) 02/28/25 22:50 Urine Urobilinogen 1.0 mg/dL (Negative) 02/28/25 22:50 Ur Leukocyte Esterase Negative (Negative) 02/28/25 22:50 Urine RBC 0-2 /hpf (0-2) 02/28/25 22:50 Urine WBC 6-10 /hpf (0-5) 02/28/25 22:50 Ur Squamous Epith Cells 11-20 /hpf (0-5) H 02/28/25 22:50 Amorphous Sediment Not Reportable 02/28/25 22:50 Urine Bacteria 2+ /hpf (NONE) H 02/28/25 22:50 Hyaline Casts 0-4 /lpf H 02/28/25 22:50 All radiology interpretation(s) finalized by discharge Discharge Plan Discharge Patient Disposition: Home Clinical Impression: Atypical chest pain Condition: Stable Prescriptions: New methocarbamol 500 mg tablet 500 mg PO Q8H PRN (Reason: muscle spasm) Qty: 30 0RF No Action prednisone 20 mg tablet 20 mg PO DAILY Qty: 15 0RF Rx Instructions: 60mg x 3 days 40mg x 2 days 20mg x 2 days methocarbamol 750 mg tablet 750 mg PO TID 14 Days Qty: 42 1RF lisinopril 20 mg tablet 20 mg PO DAILY Qty: 30 1RF metformin 500 mg tablet 500 mg PO BID Qty: 60 1RF meclizine 25 mg tablet 25 mg PO QID PRN (Reason: dizziness) Qty: 20 0RF Discharge Orders: Discharge ED (Routine); Ordered 03/01/25 Ordered By: Radha Chen Referrals: Kinza Wallace, BARBER INSTRUCTOR [Primary Care Provider, Nurse Practitioner] Discharge Diet: Usual diet Discharge Activity: Resume usual activity Patient Instructions: Pleurisy (ED), Patient Portal & Brandon Instructions Activity Restrictions/Additional Instructions: You have been ruled out from a ischemic cardiac standpoint acutely?meaning you do not have blockage at this time that is causing heart attack. There are multiple issues that cause pain in your chest. You may need a stress test, or further evaluation by an/sqq 89(v)15 sonar system journeyman. Please follow-up with your primary care physician first. Take a baby aspirin daily. Muscle relaxers have been sent to the pharmacy for pain. Do your deep breathing exercises as well which should help with pleuritic chest pain. Return to ED if you do have further issues with chest discomfort, shortness of breath, nausea and vomiting associated. 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
--- NOTE | 2025-02-28 21:39 | ECG_ITS ---
[facility]: 2025-02[facility]28 Pat Name: Shabana Lofton Department: Room: Gender: Female Brand Marketing Specialist: : 1975 Requested By: Lucas Bustos Order Number: [id number] Sheehan MD: Tim Franco M.D. Measurements Intervals Monitor Rate: 92 P: 45 IA: 163 QRS: -7 QRSD: 88 T: 30 QT: 356 QTc: 441 Interpretive Statements SINUS RHYTHM Compared to ECG 09/14/2024 11:52:31 No significant changes Electronically Signed On 02-28-2025 22:46:09 CDT by Tim Franco M.D. [email or web address] [id number]
--- NOTE | 2025-02-28 21:39 | XRR_ITS ---
PROCEDURE INFORMATION: Exam: XR Chest Exam date and time: 02/28/2025 9:55 PM Age: 49 years old Clinical indication: Pain; Chest pressure; Additional info: Chest pain TECHNIQUE: Imaging protocol: Radiologic exam of the chest. Views: 1 view. COMPARISON: CR XR chest 1V portable [id number] 01/23/2024 3:56 PM FINDINGS: Lungs: There is mild elevation of the right side of the diaphragm. No consolidation. Pleural spaces: Unremarkable. No pleural effusion. No pneumothorax. Heart/Mediastinum: Unremarkable. No cardiomegaly. Bones/joints: Unremarkable. XR/XR chest 1V portable [id number] IMPRESSION: No acute findings.
[2025-02-28 22:20] LABS: Hematocrit 37.5 % (36-47); Hemoglobin 12.30 g/dL (11.27-16.99); Mean Corpuscular HGB Conc 32.8 g/dL (30-55); Mean Corpuscular Hemoglobin 27.0 pg (27-33); Mean Corpuscular Volume 82.4 fl (85-98); Nucleated Red Blood Cells % 0 %; Platelet Count 284 10^3/cmm (157-399); Red Blood Count 4.55 10^6/uL (3.85-5.65); White Blood Count 11.83 10^3/uL (3.29-11.43)
[2025-02-28] MEDS: lidocaine 2% viscous 15 ML, aluminum-mag hydrox-simethicon 30 ML, sucralfate oral liq 1 GM PO (22:32)
[2025-02-28 22:33] VITALS: BP 118/74; PULSE 74; RESP 16; O2SAT 97
[2025-02-28 22:42] LABS: Troponin(5th) Baseline < 6 ng/L (0-10)
[2025-02-28 22:54] LABS: Alanine Aminotransferase 13 U/L (0-33); Albumin Level 3.9 g/dL (3.5-5.2); Alkaline Phosphatase 132 U/L (35-105); Anion Gap 15.6 (5-19); Aspartate Amino Transferase 10 U/L (0-32); Blood Urea Nitrogen 5 mg/dL (6-20); Calcium 9.0 mg/dL (8.5-10.5); Carbon Dioxide 24 mmol/L (22-29); Chloride 101 mmol/L (98-107); Creatinine Clr Calc Pharmacy 144.0533; Globulin 2.3 g/dL (1.3-4.6); Glucose 78 mg/dL (65-115); Lipase 18 U/L (13-60); NT Pro B Type Natriuretic Pept < 36 pg/mL (0-125); Osmolality Calculated 280 mOsm/kg (285-295); Potassium 3.6 mmol/L (3.5-5.1); Sodium 137 mmol/L (136-145); Total Protein 6.2 g/dL (6.6-8.7)
[2025-02-28 22:56] LABS: HCG Qualitative Urine. Negative (Negative)
[2025-02-28 22:58] LABS: Glucose Urine UA Negative (Normal); Nitrate Urine Negative (Negative); Specific Gravity, Urine 1.020 (1.005-1.030)
[2025-02-28 23:03] LABS: Add Urine Microscopic? YES
--- NOTE | 2025-02-28 23:39 | ECG_ITS ---
[facility] Date: 2025-02-28 Pat Name: Shabana Lofton Department: Room: Gender: Female Power Press Tender: : 1975 Requested By: Lucas Bustos Order Number: [id number] Aguila MD: CAMILA BUI Measurements Intervals Saline Rate: 92 P: 45 IL: 163 QRS: -7 QRSD: 88 T: 30 QT: 356 QTc: 441 Interpretive Statements SINUS RHYTHM Compared to ECG 09/14/2024 11:52:31 No significant changes Electronically Signed On 03-06-2025 20:02:18 CDT by CAMILA BUI [email or web address] [id number]
[2025-03-01] VITALS: BP 113/64; PULSE 86; RESP 16; O2SAT 97
[2025-03-01 00:19] VITALS: RESP 16
[2025-03-01] MEDS: ondansetron 2 mg/ML SDV 2 mL 4 MG IVP (00:19)
[2025-03-01] MEDS: morphine 4 mg/mL SDV 1 mL IVP (00:19)
[2025-03-01 00:47] LABS: Troponin 5 2HR < 6.0 ng/L (0-10); Troponin 5 2HR Delta 0 ABS# (0-10)
[2025-03-01 01:04] VITALS: BP 106/55; PULSE 92; RESP 16; O2SAT 97
== END 2025-03-01 01:05 | disposition home or self-care (01) ==
PROVIDERS: Emergency Medicine; Emergency Provider Physician Assistant; PCP Nurse Practitioner Family
DX: R07.89 Other chest pain (principal); Z79.84 Long term (current) use of oral hypoglycemic drugs; Z87.891 Personal history of nicotine dependence
CPT/HCPCS: 36415; 71045; 80053; 81001; 81025; 83690; 83880; 84484; 85025; 93005; 96374; 96375; 99285; J2270; J2405; J9999

== ENCOUNTER 2025-03-26 14:43 | Emergency (ER) | payer MEDICAID, SELFPAY ==
[2025-03-26 14:46] VITALS: BP 104/79; PULSE 115; RESP 16; TEMP 36.9; O2SAT 96; BMI 42.9
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
[2025-03-26] MEDS: morphine 4 mg/mL SDV 1 mL IM (15:01)
[2025-03-26] MEDS: ondansetron 2 mg/ML SDV 2 mL 4 MG IM (15:01)
[2025-03-26 16:50] VITALS: BP 107/48; PULSE 95; O2SAT 96
== END 2025-03-26 16:51 | disposition home or self-care (01) ==
PROVIDERS: Emergency Provider Physician Assistant; PCP Nurse Practitioner Family
DX: S30.0XXA Contusion of lower back and pelvis, initial encounter (principal); S00.03XA Contusion of scalp, initial encounter; Y04.2XXA Assault by strike against or bumped into by another person, initial encounter; Z79.84 Long term (current) use of oral hypoglycemic drugs; Z87.891 Personal history of nicotine dependence
CPT/HCPCS: 70450; 72100; 72125; 96372; 99284; J1885; J2270; J2405

== ENCOUNTER 2025-03-27 07:54 | Outpatient (CLI) | payer MEDICAID, SELFPAY ==
--- NOTE | 2025-03-27 08:00 | NM_ITS ---
WS: [id number] NUCLEAR MEDICINE GASTRIC STUDY CLINICAL INFORMATION: DELAYED EMPTYING TECHNIQUE: Following oral ingestion of cooked egg mixed with 998 uCi technetium 99m sulfur colloid, anterior images of the stomach were obtained over the course of 90 minutes. Activity curve was performed over the course of 90 minutes with linear regression analysis. FINDINGS: Ingestion of cooked egg mixture Delayed T1 half emptying 142 minutes 46% emptying at 117 minutes 25% emptying at 60 minutes NM/[place] [id number] IMPRESSION: Delayed gastric emptying with T1 half emptying 142 minutes *Normal median T1 half 90 minutes for solid egg meal (45-110 minutes). Delayed gastric retention is defined as 90% retained at 1 hour, 60% at 2 hour s, 30% at 3 hours, and 10% at 4 hours (normal percent gastric retention is 37-9 0% at 1 hour, 30-60% at 2 hours, and 0-10% at 4 hours).
== END 2025-03-27 07:55 | disposition home or self-care (01) ==
LOC: RAD 07:55
PROVIDERS: PCP Nurse Practitioner Family; Visit Provider Nurse Practitioner Family
DX: K30 Functional dyspepsia (principal)
CPT/HCPCS: 78264; A9541